=== PATIENT | male | born 1945 | race Caucasian/White ===

== ENCOUNTER 2018-08-02 07:29 | Day surgery (SDC) | payer MEDICARE, OTHER, SELFPAY ==
--- NOTE | 2018-08-02 | PATH_ITS ---
[facility] Accession Number: [id number] . 01 Material submitted: . SPLENIC FLEXURE POLYP . 02 Diagnosis: Biopsy, Colon Polyp, Splenic Flexure: Tubular adenoma. MRV/08/05/2018 . 02 Electronically signed: . Nile Griffin MD, Pathologist NPI- [id number] . 01 Gross description: . SPLENIC FLEXURE POLYP: Received in formalin is 1 fragment(s) of mckee, soft tissue measuring 0.5 x 0.3 x 0.2 cm submitted entirely in 1 cassette(s) /CKI /CKI . 02 Pathologist provided ICD-10: D12.2 . 02 CPT . 703867 Performed at: 01 [facility] [place] [address] [id number] MD Ernesto Drake MD Phone: [phone] Performed at: 02 [facility] [address] [place], [place] [id number] MD Mc Pavon MD Phone: [phone]
[2018-08-02 07:54] VITALS: BP 163/90; PULSE 77; RESP 16; TEMP 36.6; O2SAT 99; BMI 22.2
[2018-08-02] MEDS: MIDAZOLAM 5 MG/5 ML VIAL IV (08:46)
[2018-08-02] MEDS: fentaNYL 250 MCG/5 ML INJ IV (08:47)
[2018-08-02] MEDS: SODIUM CHLORIDE 0.9% 1,000 ML 200 ML IV (08:55)
[2018-08-02 09:04] VITALS: BP 114/77; PULSE 83; RESP 10; O2SAT 100
[2018-08-02 09:10] VITALS: BP 138/81; PULSE 87; RESP 12; O2SAT 99
[2018-08-02 09:11] VITALS: TEMP 36.6
[2018-08-02 09:14] VITALS: BP 127/86; PULSE 80; RESP 9; O2SAT 96
[2018-08-02 09:27] VITALS: BP 131/83; PULSE 76; RESP 12; TEMP 37.1; O2SAT 97
--- NOTE | 2018-08-02 09:47 | SUR.PHASEII ---
+ flatus per pt, abd soft.
--- NOTE | 2018-08-02 18:46 | OP_ITS ---
DATE OF SERVICE: 08/02/2018 PREOP DIAGNOSIS: Screening colonoscopy. POSTOP DIAGNOSIS: A 2- to 3-mm hyperplastic polyp removed at splenic flexure. OPERATIONS: 1. Total colonoscopy to the cecum. 2. Biopsy of splenic flexure. SURGEON: Zenon Hutton MD DESCRIPTION OF PROCEDURE: Patient was properly identified during surgical pause, given conscious sedation using Versed and fentanyl. The flexible fiberoptic colonoscope inserted transanally to the cecum. Patient had essentially normal colon mucosa throughout with the exception that he had a 2- to 3-mm sessile, what I believe to be a hyperplastic polyp, not a true adenoma, at the splenic flexure near 50 cm. This was removed with the cold forceps and sent for histology. Procedure was very well tolerated. No other polyps, tumors, or abnormalities were encountered. Nile Santiago - Barber/johan doc#: [id number]/job#: [id number] dd: 08/02/2018 09:08:00 dt: 08/02/2018 18:40:00 DICTATING MD/COPIES TO: Zenon Hutton MD COPIES MNE: ANNE-MARIE
--- NOTE | 2018-08-08 10:24 | HP_ITS ---
DATE OF SERVICE: 08/01/2018 PREOPERATIVE HISTORY AND PHYSICAL HISTORY OF PRESENT ILLNESS: Coming in tomorrow, August 02, 2018, for screening colonoscopy. Patient is 73. He is asymptomatic with no hematochezia, no melena. He's coming in for screening colonoscopy. He has had a previous colonoscopy and he is stated to have had some benign polyps removed. I don't have a date for that. PAST MEDICAL HISTORY: Patient is on beta-blockers. Taking metoprolol 25 mg extended release. He takes 2 twice a day, so he's taking 50 b.i.d. as an antihypertensive. He's also on hydrochlorothiazide 12.5. He takes one a day of that. He's also on thyroxine 100 mcg a day as a thyroid replacement hormone. ALLERGIES: HE HAS NO KNOWN MEDICAL ALLERGIES. REVIEW OF SYSTEMS: System review is negative for unusual chest pain or shortness of breath. GI is mentioned in HPI with history of benign polyps. : Does have some symptoms of BPH. NEUROLOGIC: Negative for strokes or TIAs. PHYSICAL EXAMINATION VITAL SIGNS: Blood pressure 134/76, heart rate 72 and regular. HEENT: Ears, nose, and throat are normal. NECK: No adenopathy. CHEST: Lungs are clear. HEART: Regular rhythm with no murmur. No gallop. ABDOMEN: Soft. No organomegaly or tenderness. No masses. RECTAL: Patient will have a rectal exam at the time of colonoscopy. It's deferred on this exam. DIAGNOSIS: Screening colonoscopy. Nile Santiago - /elizabeth/johan doc#: [id number]/job#: [id number] dd: 08/01/2018 11:15:00 dt: 08/01/2018 12:29:00 DICTATING MD/COPIES TO: Zenon Hutton MD COPIES MNE: ANNE-MARIE
== END 2018-08-02 09:42 | disposition home or self-care (01) ==
PROVIDERS: Surgery; PCP Family Medicine; Visit Provider Surgery
PROC: 0DJD8ZZ Inspection of Lower Intestinal Tract, Via Natural or Artificial Opening Endoscopic (ICD-10-PCS; CPT 45378; principal; 2018-08-02 08:45)
DX: Z12.11 Encounter for screening for malignant neoplasm of colon (principal); D12.2 Benign neoplasm of ascending colon
CPT/HCPCS: 45380; 88305; J2250; J3010

== ENCOUNTER 2019-12-05 13:45 | Outpatient (RCR) | payer OTHER, SELFPAY ==
--- NOTE | 2019-10-15 12:00 | PT.OPPOC ---
Physical, Occupational & Speech Therapy At 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) Visit Care Team Role Provider Type Devon Vega MD Primary Care Provider Physician Specialty: Family Practice Address: [address] [place] [address], [facility] [place], [address] Email: [email or web address] Attending Provider Specialty: Address: Phone: Fax: Email: Plan Of Care PT-OP-T Assessment and Plan Start: 10/14/19 13:59 Freq: Status: Active Protocol: Document 10/15/19 12:00 AW (Rec: 10/16/19 17:39 AW [id number]) Physical Therapy Assessment Rehab Potential Rehabilitation Potential Excellent Evaluation Complexity Number of Personal Factors/Comorbidities 1-2 Number of Body Systems Impaired 1-2 Clinical Presentation at Evaluation Stable Impairments Impairments Activity Tolerance,Balance, Functional Activities,Gait, Strength Other Concerns Barriers to Rehabilitation None identified Goals 4 Impairment impaired B LE strength Short Term Goal (STG) Pt will demonstrate 4+/5 strength in bilateral hips all planes. STG Duration 11/26/2019 Jail Goal (LTG) Pt will demonstrate 5/5 strength in bilateral hips all planes. LTG Duration 01/07/2020 3 Impairment Pt scores 23/30 on Functional Gait Assessment Jail Goal (LTG) Pt will score 27/30 or better to demonstrate improvement in dynamic balance and reduced risk of falls. LTG Duration 01/07/2020 2 Impairment Pt scores 59/80 on LEFS Short Term Goal (STG) Pt will score 66/80 or better to demonstrate improved function with daily activities . STG Duration 11/26/2019 [employer] Gun[employer] Observer Goal (LTG) Pt will score 72/80 or better to demonstrate improved function with daily activities . LTG Duration 01/07/2020 1 Impairment Pt has no appropriate HEP Short Term Goal (STG) Pt will be independent with HEP for support of therapy services provided in clinic. STG Duration 11/12/2019 [employer] Gun[employer] Observer Goal (LTG) Pt will be independent with maintenance HEP LTG Duration 01/07/2020 Assessment Summary Assessment Don presents to outpatient PT as a low complexity evaluation . He is functionally independent with all mobility using his R LE prosthesis but has decreased activity tolerance since acquisition of new socketless socket ~4 months ago. He reports no pain but does demonstrate B LE weakness affecting balance and gait efficiency. He will benefit from skilled physical therapy to address B LE strengthening and gait training for improved mechanics in gait. Physical Therapy Plan Frequency and Duration Frequency of Treatment 2x/Week Duration of Treatment 12 weeks Plan of Care Start Date 10/15/19 Plan of Care End Date 01/07/20 Therapeutic Interventions Therapeutic Interventions Balance Training,Gait Training ,Home Exercise Program,Joint Mobilizations,Manual Therapy, Neuromuscular Re-education, Orthotic/Prosthetic Management ,Patient/Caregiver Education, Self-Care/Home Management,Soft Tissue Mobilization,Taping, Therapeutic Activities, Therapeutic Exercises Next Visit Focus/Plan Next Note Type Treatment Note Next Visit Plan Assess response to prescribed exercise. Perform 6 minute walk test. Initiate LE strengthening and gait training. Plan of Care Dates Plan of Care Start Date 10/15/19 Plan of Care End Date 01/07/20 Electronically Signed by: Emily Allen PT 10/16/19 [id number] Please Sign and Return: I have reviewed this Plan of Care and certify that the skilled therapy services above are required to meet the patient?s needs. Physician Signature Date Printed Name and Credentials Clinical Instructor Signature Printed Name and Credentials
--- NOTE | 2019-10-15 12:00 | PT.OIE ---
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) Visit Care Team Role Provider Type Devon Vega MD Primary Care Provider Physician Specialty: Family Practice Address: [address] [place] [address], [facility], [place], [address] Email: [email or web address] Attending Provider Specialty: Address: Phone: Fax: Email: Physical Therapy Initial Evaluation PT-OP-A Visit Information Start: 10/14/19 13:59 Freq: Status: Active Protocol: Document 10/15/19 12:00 AW (Rec: 10/16/19 17:39 AW [id number]) Out-Patient Physical Therapy Visit Information Visit Information Visit Type Initial Evaluation Visit Start Time 11:15 Visit Stop Time 12:00 Total Visit Minutes 45 Visit Number 1 Number of ASBESTOS REMOVER Visits 0 Evaluation Information Evaluation Date 10/15/19 PT-OP-B Current Condition Start: 10/14/19 13:59 Freq: Status: Active Protocol: Document 10/15/19 12:00 AW (Rec: 10/16/19 17:39 AW [id number]) Current Condition History of Current Condition Onset Date 4 months Current Complaints right LE weakness, decreased activity tolerance History of Current Condition Efe is a of the [place] conflict who sustained R LE injury during service, rehabilitated for most of a year in an attempt to salvage the limb, and then 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 He has used the same prosthesis for many years with a rigid socket, but he began to experience ischial irritation and switched to a [employer] socketless socket under the care of Flory Linares at [facility] ~4 months ago . Since that time, he has enjoyed increased comfort with his prosthesis and is able to wear it longer during the day but notices that he becomes fatigued more easily. He seeks physical therapy for strengthening and gait training in order to maximize use of his prosthesis with new socket. Prior Treatments and Tests Under the care of ADELINA Godfrey at [facility]. Future Testing and Treatments Planned none identified Treatment Goals Patient/Caregiver Goals Efe would like to get more use out of his new prosthesis with new socket and be able to walk longer distances with less fatigue. Prior Functional Status Baseline Function- ADL's Independent Baseline Function- Mobility Independent Baseline Function- Gait independent with prosthesis Baseline Function- Work/School retired Baseline Function- Recreation/Hobbies Pt likes to spend time working in the yard Current Functional Impairments (Reported) Functional Limitations- Mobility/Gait Pt reports he is more fatigued with ambulation than he was with his previous socket Functional Limitations- Recreation/ Decreased confidence on uneven Hobbies surfaces PT-OP-C Subjective Start: 10/14/19 13:59 Freq: Status: Active Protocol: Document 10/15/19 12:00 AW (Rec: 10/16/19 17:39 AW [id number]) Patient Questionnaires Lower Extremity Functional Scale LEFS Score 59/80 LEFS Impairment 20 to 39% Impaired (Score 48- 62) OP-PT Pain Assessment Pain Assessment Grid Paper Pain Assessment Grid Completed Yes Comments Pain Comments No pain reported. PT-OP-E Functional Tests Start: 10/14/19 13:59 Freq: Status: Active Protocol: Document 10/15/19 12:00 AW (Rec: 10/16/19 17:39 AW [id number]) Functional Tests Functional Gait Assessment Score 23/30 PT-OP-F Manual Assessment Start: 10/14/19 13:59 Freq: Status: Active Protocol: Document 10/15/19 12:00 AW (Rec: 10/16/19 17:39 AW [id number]) Manual Assessments Other Manual Assessments Other Manual Assessments Global atrophy of right hip musculature relative to left. PT-OP-G Mobility & Gait Start: 10/14/19 13:59 Freq: Status: Active Protocol: Document 10/15/19 12:00 AW (Rec: 10/16/19 17:39 AW [id number]) OP Mobility Evaluation Functional Movements Other Functional Movements Independent with all functional mobility OP Gait Assessment Gait Gait Assistance Required: Independent Distance (Feet) 200 Assistive Devices Orthotic/Prosthetic Devices or Brace: Yes Gait Deviations General Gait Pattern Lateral Trunk Lean,Wide Based Gait Factors Limiting Gait Function Factors Limiting Gait Function Decreased Activity Tolerance, Decreased Strength Comments Gait Comments Pt walks with increased hip flexion on the R LE to clear his foot. Contralateral hip drop during R LE stance. Mild circumduction and overuse of adductors during R LE swing phase. Right lateral trunk lean during R LE stance. Stair Climbing Evaluation Evaluation Level of Assist On Stairs Independent Devices Stair Climbing Assistive Devices Left Railing,Right Railing Technique/Endurance Stair Climbing Direction Ascend and Descend Stair Climbing Technique Step Over Step,Step to Step Number of Steps Climbed 4 Stair Climbing Set # Repetitions (reps) 3 Comments Stair Climbing Comments Pt ascended using B rails and step over step pattern. He is able to descend with B rails and step over step if he is careful to position his right forefoot off the step, but he tends to use a step-to pattern descending for increased confidence. PT-OP-K Range of Motion Start: 10/14/19 13:59 Freq: Status: Active Protocol: Document 10/15/19 12:00 AW (Rec: 10/16/19 17:39 AW [id number]) Hip Goniometric Range of Motion Hip ROM Limitations Comments B hip AROM WNL and normal end feels with PROM PT-OP-M Strength Start: 10/14/19 13:59 Freq: Status: Active Protocol: Document 10/15/19 12:00 AW (Rec: 10/16/19 17:39 AW [id number]) Hip Strength Hip Manual Muscle Testing Right Flexion (L2) 4 Good Extension (S1) 4- Good- Abduction 4- Good- Adduction 4 Good Left Flexion (L2) 4+ Good+ Extension (S1) 4- Good- Abduction 4- Good- Adduction 4 Good External Rotation 4 Good Internal Rotation 4 Good Knee Strength Knee Manual Muscle Testing Left Flexion (S2) 5 Normal Extension (L3) 5 Normal Ankle/Foot Strength Ankle and Foot Manual Muscle Testing Left Dorsiflexion (L4) 5 Normal Plantarflexion (S1) 5 Normal PT-OP-Q Treatments Start: 10/14/19 13:59 Freq: Status: Active Protocol: Document 10/15/19 12:00 AW (Rec: 10/16/19 17:39 AW [id number]) Therapeutic Exercises Sidelying Exercises sidelying hip abduction Sidelying Exercise Name sidelying hip abduction Side right Reps/Minutes 2 x 10 reps Comments HEP PT-OP-T Assessment and Plan Start: 10/14/19 13:59 Freq: Status: Active Protocol: Document 10/15/19 12:00 AW (Rec: 10/16/19 17:39 AW [id number]) Physical Therapy Assessment Rehab Potential Rehabilitation Potential Excellent Evaluation Complexity Number of Personal Factors/Comorbidities 1-2 Number of Body Systems Impaired 1-2 Clinical Presentation at Evaluation Stable Impairments Impairments Activity Tolerance,Balance, Functional Activities,Gait, Strength Other Concerns Barriers to Rehabilitation None identified Goals 4 Impairment impaired B LE strength Short Term Goal (STG) Pt will demonstrate 4+/5 strength in bilateral hips all planes. STG Duration 11/26/2019 Custodial Goal (LTG) Pt will demonstrate 5/5 strength in bilateral hips all planes. LTG Duration 01/07/2020 3 Impairment Pt scores 23/30 on Functional Gait Assessment Advertising Inserter Goal (LTG) Pt will score 27/30 or better to demonstrate improvement in dynamic balance and reduced risk of falls. LTG Duration 01/07/2020 2 Impairment Pt scores 59/80 on LEFS Short Term Goal (STG) Pt will score 66/80 or better to demonstrate improved function with daily activities . STG Duration 11/26/2019 Custodial Goal (LTG) Pt will score 72/80 or better to demonstrate improved function with daily activities . LTG Duration 01/07/2020 1 Impairment Pt has no appropriate HEP Short Term Goal (STG) Pt will be independent with HEP for support of therapy services provided in clinic. STG Duration 11/12/2019 Advertising Inserter Goal (LTG) Pt will be independent with maintenance HEP LTG Duration 01/07/2020 Assessment Summary Assessment Efe presents to outpatient PT as a low complexity evaluation . He is functionally independent with all mobility using his R LE prosthesis but has decreased activity tolerance since acquisition of new socketless socket ~4 months ago. He reports no pain but does demonstrate B LE weakness affecting balance and gait efficiency. He will benefit from skilled physical therapy to address B LE strengthening and gait training for improved mechanics in gait. Physical Therapy Plan Frequency and Duration Frequency of Treatment 2x/Week Duration of Treatment 12 weeks Plan of Care Start Date 10/15/19 Plan of Care End Date 01/07/20 Therapeutic Interventions Therapeutic Interventions Balance Training,Gait Training ,Home Exercise Program,Joint Mobilizations,Manual Therapy, Neuromuscular Re-education, Orthotic/Prosthetic Management ,Patient/Caregiver Education, Self-Care/Home Management,Soft Tissue Mobilization,Taping, Therapeutic Activities, Therapeutic Exercises Next Visit Focus/Plan Next Note Type Treatment Note Next Visit Plan Assess response to prescribed exercise. Perform 6 minute walk test. Initiate LE strengthening and gait training.
--- NOTE | 2019-10-17 13:08 | PT.OTN ---
Current Diagnoses Muscle weakness (generalized) (10/17/19) Unspecified abnormalities of gait and mobility (10/17/19) Acquired absence of right leg above knee (10/17/19) Physical Therapy Treatment Note PT-OP-A Visit Information Start: 10/14/19 13:59 Freq: Status: Active Protocol: Document 10/17/19 12:19 SP (Rec: 10/17/19 14:29 SP [id number]) Out-Patient Physical Therapy Visit Information Visit Information Visit Type Treatment Note Visit Start Time 12:19 Visit Stop Time 13:00 Total Visit Minutes 41 Visit Number 2 Number of WASHTUB WORKER Visits 1 PT-OP-B Current Condition Start: 10/14/19 13:59 Freq: Status: Active Protocol: Document 10/15/19 12:00 AW (Rec: 10/16/19 17:39 AW [id number]) Current Condition History of Current Condition Onset Date 4 months Current Complaints right LE weakness, decreased activity tolerance History of Current Condition Efe is a of the [place] conflict who sustained R LE injury during service, rehabilitated for most of a year in an attempt to salvage the limb, and then 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 He has used the same prosthesis for many years with a rigid socket, but he began to experience ischial irritation and switched to a [employer] socketless socket under the care of Flory Linares at [facility] ~4 months ago . Since that time, he has enjoyed increased comfort with his prosthesis and is able to wear it longer during the day but notices that he becomes fatigued more easily. He seeks physical therapy for strengthening and gait training in order to maximize use of his prosthesis with new socket. Prior Treatments and Tests Under the care of ADELINA Godfrey at [facility]. Future Testing and Treatments Planned none identified Treatment Goals Patient/Caregiver Goals Efe would like to get more use out of his new prosthesis with new socket and be able to walk longer distances with less fatigue. Prior Functional Status Baseline Function- ADL's Independent Baseline Function- Mobility Independent Baseline Function- Gait independent with prosthesis Baseline Function- Work/School retired Baseline Function- Recreation/Hobbies Pt likes to spend time working in the yard Current Functional Impairments (Reported) Functional Limitations- Mobility/Gait Pt reports he is more fatigued with ambulation than he was with his previous socket Functional Limitations- Recreation/ Decreased confidence on uneven Hobbies surfaces PT-OP-C Subjective Start: 10/14/19 13:59 Freq: Status: Active Protocol: Document 10/17/19 12:19 SP (Rec: 10/17/19 14:29 SP [id number]) OP-PT Subjective Patient Comments Patient Comments Pt reported compliant with HEP hip abd instructed last tx, felt fine. PT-OP-E Functional Tests Start: 10/14/19 13:59 Freq: Status: Active Protocol: Document 10/17/19 14:30 SP (Rec: 10/17/19 14:32 SP [id number]) Functional Tests 6 Minute Walk Test Distance 1038 Device Used prosthetic Comments hip flexor, adductor R tiring, noted slight circumduction, slower pace end PT-OP-F Manual Assessment Start: 10/14/19 13:59 Freq: Status: Active Protocol: Document 10/15/19 12:00 AW (Rec: 10/16/19 17:39 AW [id number]) Manual Assessments Other Manual Assessments Other Manual Assessments Global atrophy of right hip musculature relative to left. PT-OP-G Mobility & Gait Start: 10/14/19 13:59 Freq: Status: Active Protocol: Document 10/15/19 12:00 AW (Rec: 10/16/19 17:39 AW [id number]) OP Mobility Evaluation Functional Movements Other Functional Movements Independent with all functional mobility OP Gait Assessment Gait Gait Assistance Required: Independent Distance (Feet) 200 Assistive Devices Orthotic/Prosthetic Devices or Brace: Yes Gait Deviations General Gait Pattern Lateral Trunk Lean,Wide Based Gait Factors Limiting Gait Function Factors Limiting Gait Function Decreased Activity Tolerance, Decreased Strength Comments Gait Comments Pt walks with increased hip flexion on the R LE to clear his foot. Contralateral hip drop during R LE stance. Mild circumduction and overuse of adductors during R LE swing phase. Right lateral trunk lean during R LE stance. Stair Climbing Evaluation Evaluation Level of Assist On Stairs Independent Devices Stair Climbing Assistive Devices Left Railing,Right Railing Technique/Endurance Stair Climbing Direction Ascend and Descend Stair Climbing Technique Step Over Step,Step to Step Number of Steps Climbed 4 Stair Climbing Set # Repetitions (reps) 3 Comments Stair Climbing Comments Pt ascended using B rails and step over step pattern. He is able to descend with B rails and step over step if he is careful to position his right forefoot off the step, but he tends to use a step-to pattern descending for increased confidence. PT-OP-K Range of Motion Start: 10/14/19 13:59 Freq: Status: Active Protocol: Document 10/15/19 12:00 AW (Rec: 10/16/19 17:39 AW [id number]) Hip Goniometric Range of Motion Hip ROM Limitations Comments B hip AROM WNL and normal end feels with PROM PT-OP-M Strength Start: 10/14/19 13:59 Freq: Status: Active Protocol: Document 10/15/19 12:00 AW (Rec: 10/16/19 17:39 AW [id number]) Hip Strength Hip Manual Muscle Testing Right Flexion (L2) 4 Good Extension (S1) 4- Good- Abduction 4- Good- Adduction 4 Good Left Flexion (L2) 4+ Good+ Extension (S1) 4- Good- Abduction 4- Good- Adduction 4 Good External Rotation 4 Good Internal Rotation 4 Good Knee Strength Knee Manual Muscle Testing Left Flexion (S2) 5 Normal Extension (L3) 5 Normal Ankle/Foot Strength Ankle and Foot Manual Muscle Testing Left Dorsiflexion (L4) 5 Normal Plantarflexion (S1) 5 Normal PT-OP-Q Treatments Start: 10/14/19 13:59 Freq: Status: Active Protocol: Document 10/17/19 12:19 SP (Rec: 10/17/19 14:29 SP [id number]) Therapeutic Exercises Supine Exercises adductor stretch Supine Exercise Name prosthetic donned Side right Reps/Minutes 30 x3 bridge Supine Exercise Name prosthetic donned (HEP) Reps/Minutes 2x10 Comments cued PPT, slow pacing control up/down and knee parallel Sidelying Exercises sidelying hip abduction Side right Equipment Used prosthetic donned Reps/Minutes 2x7 Comments HEP Sitting Exercises glut stretch Sitting Exercise Name fiugure 4 lean forward Reps/Minutes 30 x2 Standing Exercises sit to stands Resistance Tb #1 loop Reps/Minutes 2x7 Comments parallel feet, knees with and behind toes, hip hinge arms across chest, ER PT-OP-T Assessment and Plan Start: 10/14/19 13:59 Freq: Status: Active Protocol: Document 10/17/19 12:19 SP (Rec: 10/17/19 14:29 SP [id number]) Physical Therapy Assessment Goals 4 Impairment impaired B LE strength Short Term Goal (STG) Pt will demonstrate 4+/5 strength in bilateral hips all planes. STG Duration 11/26/2019 Assisted Goal (LTG) Pt will demonstrate 5/5 strength in bilateral hips all planes. LTG Duration 01/07/2020 3 Impairment Pt scores 23/30 on Functional Gait Assessment Assisted Goal (LTG) Pt will score 27/30 or better to demonstrate improvement in dynamic balance and reduced risk of falls. LTG Duration 01/07/2020 2 Impairment Pt scores 59/80 on LEFS Short Term Goal (STG) Pt will score 66/80 or better to demonstrate improved function with daily activities . STG Duration 11/26/2019 Rock Splitter Goal (LTG) Pt will score 72/80 or better to demonstrate improved function with daily activities . LTG Duration 01/07/2020 1 Impairment Pt has no appropriate HEP Short Term Goal (STG) Pt will be independent with HEP for support of therapy services provided in clinic. STG Duration 11/12/2019 Rock Splitter Goal (LTG) Pt will be independent with maintenance HEP LTG Duration 01/07/2020 Assessment Summary Assessment Pt tolerated tx today, focused on HEP review and added more exercises (prosthetic donned) and stretches: hip abd with prothetic today secondary to reported pretty easy without, bridging, sit to stands with TB loop around knees and cuing for even wt distribution BLE and glut/adductor stretches to decrease soreness abductors ( with ex), hip flexors post completed 6MWT 1038 ft (no AD, prosthetic donned). Positive response to tx, very helpful, simple but effective to do at home. No pain reported, muscle work out soreness more abd's than add's. Physical Therapy Plan Frequency and Duration Frequency of Treatment 2x/Week Duration of Treatment 12 weeks Plan of Care Start Date 10/15/19 Plan of Care End Date 01/07/20 Therapeutic Interventions Therapeutic Interventions Balance Training,Gait Training ,Home Exercise Program,Joint Mobilizations,Manual Therapy, Neuromuscular Re-education, Orthotic/Prosthetic Management ,Patient/Caregiver Education, Self-Care/Home Management,Soft Tissue Mobilization,Taping, Therapeutic Activities, Therapeutic Exercises Next Visit Focus/Plan Next Note Type Treatment Note Next Visit Plan Assess response to HEP exercise: bridge, hip abd with prosthetic donned, sit to stand, glut/adductor stretches Continue per PT POC: Initiate LE strengthening and gait training.
--- NOTE | 2019-10-24 13:50 | PT.OTN ---
Current Diagnoses Muscle weakness (generalized) (10/24/19) Unspecified abnormalities of gait and mobility (10/24/19) Acquired absence of right leg above knee (10/24/19) Physical Therapy Treatment Note PT-OP-A Visit Information Start: 10/14/19 13:59 Freq: Status: Active Protocol: Document 10/24/19 13:10 SP (Rec: 10/24/19 14:04 SP [id number]) Out-Patient Physical Therapy Visit Information Visit Information Visit Type Treatment Note Visit Start Time 13:10 Visit Stop Time 13:50 Total Visit Minutes 40 Visit Number 3 Number of MANAGER SECURITY AND SAFETY Visits 2 PT-OP-B Current Condition Start: 10/14/19 13:59 Freq: Status: Active Protocol: Document 10/15/19 12:00 AW (Rec: 10/16/19 17:39 AW [id number]) Current Condition History of Current Condition Onset Date 4 months Current Complaints right LE weakness, decreased activity tolerance History of Current Condition Efe is a of the [place] conflict who sustained R LE injury during service, rehabilitated for most of a year in an attempt to salvage the limb, and then 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 He has used the same prosthesis for many years with a rigid socket, but he began to experience ischial irritation and switched to a [employer] socketless socket [facility] . Since that time, he has enjoyed increased comfort with his prosthesis and is able to wear it longer during the day but notices that he becomes fatigued more easily. He seeks physical therapy for strengthening and gait training in order to maximize use of his prosthesis with new socket. Prior Treatments and Tests Under the care of ADELINA Godfrey at [facility]. Future Testing and Treatments Planned none identified Treatment Goals Patient/Caregiver Goals Efe would like to get more use out of his new prosthesis with new socket and be able to walk longer distances with less fatigue. Prior Functional Status Baseline Function- ADL's Independent Baseline Function- Mobility Independent Baseline Function- Gait independent with prosthesis Baseline Function- Work/School retired Baseline Function- Recreation/Hobbies Pt likes to spend time working in the yard Current Functional Impairments (Reported) Functional Limitations- Mobility/Gait Pt reports he is more fatigued with ambulation than he was with his previous socket Functional Limitations- Recreation/ Decreased confidence on uneven Hobbies surfaces PT-OP-C Subjective Start: 10/14/19 13:59 Freq: Status: Active Protocol: Document 10/24/19 13:10 SP (Rec: 10/24/19 14:04 SP [id number]) OP-PT Subjective Patient Comments Patient Comments Pt reported compliant with HEP instructed and no adverse reaction to added ex, have found good muscles haven't used in a while. PT-OP-E Functional Tests Start: 10/14/19 13:59 Freq: Status: Active Protocol: Document 10/17/19 14:30 SP (Rec: 10/17/19 14:32 SP [id number]) Functional Tests 6 Minute Walk Test Distance 1038 Device Used prosthetic Comments hip flexor, adductor R tiring, noted slight circumduction, slower pace end PT-OP-F Manual Assessment Start: 10/14/19 13:59 Freq: Status: Active Protocol: Document 10/15/19 12:00 AW (Rec: 10/16/19 17:39 AW [id number]) Manual Assessments Other Manual Assessments Other Manual Assessments Global atrophy of right hip musculature relative to left. PT-OP-G Mobility & Gait Start: 10/14/19 13:59 Freq: Status: Active Protocol: Document 10/15/19 12:00 AW (Rec: 10/16/19 17:39 AW [id number]) OP Mobility Evaluation Functional Movements Other Functional Movements Independent with all functional mobility OP Gait Assessment Gait Gait Assistance Required: Independent Distance (Feet) 200 Assistive Devices Orthotic/Prosthetic Devices or Brace: Yes Gait Deviations General Gait Pattern Lateral Trunk Lean,Wide Based Gait Factors Limiting Gait Function Factors Limiting Gait Function Decreased Activity Tolerance, Decreased Strength Comments Gait Comments Pt walks with increased hip flexion on the R LE to clear his foot. Contralateral hip drop during R LE stance. Mild circumduction and overuse of adductors during R LE swing phase. Right lateral trunk lean during R LE stance. Stair Climbing Evaluation Evaluation Level of Assist On Stairs Independent Devices Stair Climbing Assistive Devices Left Railing,Right Railing Technique/Endurance Stair Climbing Direction Ascend and Descend Stair Climbing Technique Step Over Step,Step to Step Number of Steps Climbed 4 Stair Climbing Set # Repetitions (reps) 3 Comments Stair Climbing Comments Pt ascended using B rails and step over step pattern. He is able to descend with B rails and step over step if he is careful to position his right forefoot off the step, but he tends to use a step-to pattern descending for increased confidence. PT-OP-K Range of Motion Start: 10/14/19 13:59 Freq: Status: Active Protocol: Document 10/15/19 12:00 AW (Rec: 10/16/19 17:39 AW [id number]) Hip Goniometric Range of Motion Hip ROM Limitations Comments B hip AROM WNL and normal end feels with PROM PT-OP-M Strength Start: 10/14/19 13:59 Freq: Status: Active Protocol: Document 10/15/19 12:00 AW (Rec: 10/16/19 17:39 AW [id number]) Hip Strength Hip Manual Muscle Testing Right Flexion (L2) 4 Good Extension (S1) 4- Good- Abduction 4- Good- Adduction 4 Good Left Flexion (L2) 4+ Good+ Extension (S1) 4- Good- Abduction 4- Good- Adduction 4 Good External Rotation 4 Good Internal Rotation 4 Good Knee Strength Knee Manual Muscle Testing Left Flexion (S2) 5 Normal Extension (L3) 5 Normal Ankle/Foot Strength Ankle and Foot Manual Muscle Testing Left Dorsiflexion (L4) 5 Normal Plantarflexion (S1) 5 Normal PT-OP-Q Treatments Start: 10/14/19 13:59 Freq: Status: Active Protocol: Document 10/24/19 13:10 SP (Rec: 10/24/19 14:04 SP [id number]) Therapeutic Exercises Supine Exercises Christiano stretch Supine Exercise Name off side of table Side right Equipment Used strap Reps/Minutes 3 x 30 Comments cued awareness not allow LS arch adductor stretch Supine Exercise Name prosthetic donned Side right Reps/Minutes 30 x3 bridge Supine Exercise Name prosthetic donned (HEP) Reps/Minutes 2x10 Comments cued PPT, slow pacing control up/down and knee parallel Sidelying Exercises sidelying hip abduction Side right Equipment Used prosthetic donned Reps/Minutes 2x7 Comments HEP Standing Exercises band walk Standing Exercise Name forward/ lateral Equipment Used #1 Reps/Minutes 20 ft x2 laps each direction Comments add HEP, cued foot clearance with level pelvis glut med facilitation sit to stands Resistance Tb #1 loop Reps/Minutes 2x7 Comments parallel feet, knees with and behind toes, hip hinge arms across chest, ER PT-OP-T Assessment and Plan Start: 10/14/19 13:59 Freq: Status: Active Protocol: Document 10/24/19 13:10 SP (Rec: 10/24/19 14:04 SP [id number]) Physical Therapy Assessment Goals 4 Impairment impaired B LE strength Short Term Goal (STG) Pt will demonstrate 4+/5 strength in bilateral hips all planes. STG Duration 11/26/2019 Fdc Goal (LTG) Pt will demonstrate 5/5 strength in bilateral hips all planes. LTG Duration 01/07/2020 3 Impairment Pt scores 23/30 on Functional Gait Assessment Finisher Cold Rolling Goal (LTG) Pt will score 27/30 or better to demonstrate improvement in dynamic balance and reduced risk of falls. LTG Duration 01/07/2020 2 Impairment Pt scores 59/80 on LEFS Short Term Goal (STG) Pt will score 66/80 or better to demonstrate improved function with daily activities . STG Duration 11/26/2019 Fdc Goal (LTG) Pt will score 72/80 or better to demonstrate improved function with daily activities . LTG Duration 01/07/2020 1 Impairment Pt has no appropriate HEP Short Term Goal (STG) Pt will be independent with HEP for support of therapy services provided in clinic. STG Duration 11/12/2019 Fdc Goal (LTG) Pt will be independent with maintenance HEP LTG Duration 01/07/2020 Assessment Summary Assessment Pt tolerated tx well, these exercises are great. Pt good recall HEP, cued HEP trunk/LE alignment during hip abd AROM for post hip glut max activation to decrease TFL recruitment I can feel that, better not using anterior hip now, little harder now. Added christiano stretch prox quad and TFL and lateral/ forward band walk with cuing for decrease hip elevation during RLE movement awareness with foot clearance, improvement as reps progressed. Improvement in gait when leaving. Physical Therapy Plan Frequency and Duration Frequency of Treatment 2x/Week Duration of Treatment 12 weeks Plan of Care Start Date 10/15/19 Plan of Care End Date 01/07/20 Therapeutic Interventions Therapeutic Interventions Balance Training,Gait Training ,Home Exercise Program,Joint Mobilizations,Manual Therapy, Neuromuscular Re-education, Orthotic/Prosthetic Management ,Patient/Caregiver Education, Self-Care/Home Management,Soft Tissue Mobilization,Taping, Therapeutic Activities, Therapeutic Exercises Next Visit Focus/Plan Next Note Type Treatment Note Next Visit Plan Assess response to last tx added band walk and HEP review supine. HEp review and progress standing HEP for gait . Continue per PT POC: Initiate LE strengthening and gait training.
--- NOTE | 2019-10-29 15:42 | PT.OTN ---
Current Diagnoses Muscle weakness (generalized) (10/29/19) Unspecified abnormalities of gait and mobility (10/29/19) Acquired absence of right leg above knee (10/29/19) Physical Therapy Treatment Note PT-OP-A Visit Information Start: 10/14/19 13:59 Freq: Status: Active Protocol: Document 10/29/19 15:25 AW (Rec: 10/29/19 15:42 AW [id number]) Out-Patient Physical Therapy Visit Information Visit Information Visit Type Treatment Note Visit Start Time 13:00 Visit Stop Time 13:45 Total Visit Minutes 45 Visit Number 4 Number of WATER PUMP OPERATOR Visits 0 PT-OP-B Current Condition Start: 10/14/19 13:59 Freq: Status: Active Protocol: Document 10/15/19 12:00 AW (Rec: 10/16/19 17:39 AW [id number]) Current Condition History of Current Condition Onset Date 4 months Current Complaints right LE weakness, decreased activity tolerance History of Current Condition Efe is a of the [place] conflict who sustained R LE injury during service, rehabilitated for most of a year in an attempt to salvage the limb, and then 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 He has used the same prosthesis for many years with a rigid socket, but he began to experience ischial irritation and switched to a [employer] socketless socket under the care of Flory Linares at [facility] ~4 months ago . Since that time, he has enjoyed increased comfort with his prosthesis and is able to wear it longer during the day but notices that he becomes fatigued more easily. He seeks physical therapy for strengthening and gait training in order to maximize use of his prosthesis with new socket. Prior Treatments and Tests Under the care of ADELINA Godfrey at [facility]. Future Testing and Treatments Planned none identified Treatment Goals Patient/Caregiver Goals Efe would like to get more use out of his new prosthesis with new socket and be able to walk longer distances with less fatigue. Prior Functional Status Baseline Function- ADL's Independent Baseline Function- Mobility Independent Baseline Function- Gait independent with prosthesis Baseline Function- Work/School retired Baseline Function- Recreation/Hobbies Pt likes to spend time working in the yard Current Functional Impairments (Reported) Functional Limitations- Mobility/Gait Pt reports he is more fatigued with ambulation than he was with his previous socket Functional Limitations- Recreation/ Decreased confidence on uneven Hobbies surfaces PT-OP-C Subjective Start: 10/14/19 13:59 Freq: Status: Active Protocol: Document 10/29/19 15:25 AW (Rec: 10/29/19 15:42 AW [id number]) OP-PT Subjective Patient Comments Patient Comments Pt reports right adductor soreness after 6 minute walk last session. PT-OP-E Functional Tests Start: 10/14/19 13:59 Freq: Status: Active Protocol: Document 10/17/19 14:30 SP (Rec: 10/17/19 14:32 SP [id number]) Functional Tests 6 Minute Walk Test Distance 1038 Device Used prosthetic Comments hip flexor, adductor R tiring, noted slight circumduction, slower pace end PT-OP-F Manual Assessment Start: 10/14/19 13:59 Freq: Status: Active Protocol: Document 10/15/19 12:00 AW (Rec: 10/16/19 17:39 AW [id number]) Manual Assessments Other Manual Assessments Other Manual Assessments Global atrophy of right hip musculature relative to left. PT-OP-G Mobility & Gait Start: 10/14/19 13:59 Freq: Status: Active Protocol: Document 10/15/19 12:00 AW (Rec: 10/16/19 17:39 AW [id number]) OP Mobility Evaluation Functional Movements Other Functional Movements Independent with all functional mobility OP Gait Assessment Gait Gait Assistance Required: Independent Distance (Feet) 200 Assistive Devices Orthotic/Prosthetic Devices or Brace: Yes Gait Deviations General Gait Pattern Lateral Trunk Lean,Wide Based Gait Factors Limiting Gait Function Factors Limiting Gait Function Decreased Activity Tolerance, Decreased Strength Comments Gait Comments Pt walks with increased hip flexion on the R LE to clear his foot. Contralateral hip drop during R LE stance. Mild circumduction and overuse of adductors during R LE swing phase. Right lateral trunk lean during R LE stance. Stair Climbing Evaluation Evaluation Level of Assist On Stairs Independent Devices Stair Climbing Assistive Devices Left Railing,Right Railing Technique/Endurance Stair Climbing Direction Ascend and Descend Stair Climbing Technique Step Over Step,Step to Step Number of Steps Climbed 4 Stair Climbing Set # Repetitions (reps) 3 Comments Stair Climbing Comments Pt ascended using B rails and step over step pattern. He is able to descend with B rails and step over step if he is careful to position his right forefoot off the step, but he tends to use a step-to pattern descending for increased confidence. PT-OP-K Range of Motion Start: 10/14/19 13:59 Freq: Status: Active Protocol: Document 10/15/19 12:00 AW (Rec: 10/16/19 17:39 AW [id number]) Hip Goniometric Range of Motion Hip ROM Limitations Comments B hip AROM WNL and normal end feels with PROM PT-OP-M Strength Start: 10/14/19 13:59 Freq: Status: Active Protocol: Document 10/15/19 12:00 AW (Rec: 10/16/19 17:39 AW [id number]) Hip Strength Hip Manual Muscle Testing Right Flexion (L2) 4 Good Extension (S1) 4- Good- Abduction 4- Good- Adduction 4 Good Left Flexion (L2) 4+ Good+ Extension (S1) 4- Good- Abduction 4- Good- Adduction 4 Good External Rotation 4 Good Internal Rotation 4 Good Knee Strength Knee Manual Muscle Testing Left Flexion (S2) 5 Normal Extension (L3) 5 Normal Ankle/Foot Strength Ankle and Foot Manual Muscle Testing Left Dorsiflexion (L4) 5 Normal Plantarflexion (S1) 5 Normal PT-OP-Q Treatments Start: 10/14/19 13:59 Freq: Status: Active Protocol: Document 10/29/19 15:25 AW (Rec: 10/29/19 15:42 AW [id number]) Therapeutic Exercises Supine Exercises Christiano stretch Supine Exercise Name off side of table Side right Equipment Used strap; with prosthesis Reps/Minutes 2 min Comments cued awareness not allow LS arch adductor stretch Supine Exercise Name prosthetic donned Side right Equipment Used strap; with prosthesis Reps/Minutes 1 min x 2 bridge Supine Exercise Name prosthetic donned (HEP) Reps/Minutes 2x10 Comments cued level pelvis Sidelying Exercises clamshell Sidelying Exercise Name clamshell Side right Resistance level 1 TB Reps/Minutes 2x10 reps Comments added to HEP sidelying hip abduction Sidelying Exercise Name sidelying hip abduction Side right Resistance level 1 TB Equipment Used prosthetic donned Reps/Minutes 2x10 reps Comments HEP Standing Exercises band walk Standing Exercise Name forward/ lateral Equipment Used level 1 TB Reps/Minutes 20 ft x2 laps each direction Comments cued foot clearance with level pelvis glut med facilitation sit to stands Standing Exercise Name sit to stand Resistance level 1 TB Reps/Minutes 3x5 reps Comments parallel feet, knees with and behind toes, exaggerated forward lean PT-OP-T Assessment and Plan Start: 10/14/19 13:59 Freq: Status: Active Protocol: Document 10/29/19 15:25 AW (Rec: 10/29/19 15:42 AW [id number]) Physical Therapy Assessment Goals 4 Impairment impaired B LE strength Short Term Goal (STG) Pt will demonstrate 4+/5 strength in bilateral hips all planes. STG Duration 11/26/2019 Oyster Cultivator Goal (LTG) Pt will demonstrate 5/5 strength in bilateral hips all planes. LTG Duration 01/07/2020 3 Impairment Pt scores 23/30 on Functional Gait Assessment [facility] Goal (LTG) Pt will score 27/30 or better to demonstrate improvement in dynamic balance and reduced risk of falls. LTG Duration 01/07/2020 2 Impairment Pt scores 59/80 on LEFS Short Term Goal (STG) Pt will score 66/80 or better to demonstrate improved function with daily activities . STG Duration 11/26/2019 Oyster Cultivator Goal (LTG) Pt will score 72/80 or better to demonstrate improved function with daily activities . LTG Duration 01/07/2020 1 Impairment Pt has no appropriate HEP Short Term Goal (STG) Pt will be independent with HEP for support of therapy services provided in clinic. STG Duration 11/12/2019 Oyster Cultivator Goal (LTG) Pt will be independent with maintenance HEP LTG Duration 01/07/2020 Assessment Summary Assessment Adductor soreness likely attributable to excessive adductor recruitment during circumduction. Pt appreciated adductor stretch. He continues to tolerate ther ex well and is progressing with LE strengthening but would benefit from a consultation with his compliance coordinator for adjustment. Physical Therapy Plan Frequency and Duration Frequency of Treatment 2x/Week Duration of Treatment 12 weeks Plan of Care Start Date 10/15/19 Plan of Care End Date 01/07/20 Therapeutic Interventions Therapeutic Interventions Balance Training,Gait Training ,Home Exercise Program,Joint Mobilizations,Manual Therapy, Neuromuscular Re-education, Orthotic/Prosthetic Management ,Patient/Caregiver Education, Self-Care/Home Management,Soft Tissue Mobilization,Taping, Therapeutic Activities, Therapeutic Exercises Next Visit Focus/Plan Next Note Type Treatment Note Next Visit Plan HEP review and progress standing HEP for gait.
--- NOTE | 2019-10-31 13:45 | PT.OTN ---
Current Diagnoses Muscle weakness (generalized) (10/31/19) Unspecified abnormalities of gait and mobility (10/31/19) Acquired absence of right leg above knee (10/31/19) Physical Therapy Treatment Note PT-OP-A Visit Information Start: 10/14/19 13:59 Freq: Status: Active Protocol: Document 10/31/19 13:00 SP (Rec: 10/31/19 16:42 SP [id number]) Out-Patient Physical Therapy Visit Information Visit Information Visit Type Treatment Note Visit Start Time 13:00 Visit Stop Time 13:45 Total Visit Minutes 45 Visit Number 5 Number of JEWELLERY DESIGNER Visits 1 PT-OP-B Current Condition Start: 10/14/19 13:59 Freq: Status: Active Protocol: Document 10/15/19 12:00 AW (Rec: 10/16/19 17:39 AW [id number]) Current Condition History of Current Condition Onset Date 4 months Current Complaints right LE weakness, decreased activity tolerance History of Current Condition Efe is a of the [place] conflict who sustained R LE injury during service, rehabilitated for most of a year in an attempt to salvage the limb, and then 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 He has used the same prosthesis for many years with a rigid socket, but he began to experience ischial irritation and switched to a [employer] socketless socket under the care of Flory Linares at [facility] ~4 months ago . Since that time, he has enjoyed increased comfort with his prosthesis and is able to wear it longer during the day but notices that he becomes fatigued more easily. He seeks physical therapy for strengthening and gait training in order to maximize use of his prosthesis with new socket. Prior Treatments and Tests Under the care of ADELINA Godfrey at [facility]&. Future Testing and Treatments Planned none identified Treatment Goals Patient/Caregiver Goals Efe would like to get more use out of his new prosthesis with new socket and be able to walk longer distances with less fatigue. Prior Functional Status Baseline Function- ADL's Independent Baseline Function- Mobility Independent Baseline Function- Gait independent with prosthesis Baseline Function- Work/School retired Baseline Function- Recreation/Hobbies Pt likes to spend time working in the yard Current Functional Impairments (Reported) Functional Limitations- Mobility/Gait Pt reports he is more fatigued with ambulation than he was with his previous socket Functional Limitations- Recreation/ Decreased confidence on uneven Hobbies surfaces PT-OP-C Subjective Start: 10/14/19 13:59 Freq: Status: Active Protocol: Document 10/31/19 13:00 SP (Rec: 10/31/19 16:42 SP [id number]) OP-PT Subjective Patient Comments Patient Comments Pt reported fell yesterday on lance/ filmed sidewalk walking without prothetic donned using B forearm crutches, landed directly down onto tip of end of R stump and R wrist and thumb (noted bandaid on hand and fingertip/nail). Just a normal fall. Reported tender over posterior R tricep, elbow , hand and end of stump and tore little of 1st MTP nail but feels better with prothetic donned to decreased pressure on R UE today but wants to limit standing activities today. Pt stated hasn't called prothetist thought would wait til end of PT, thinking muscle getting stronger and prothetic feels not as much room for stump expand. PT-OP-E Functional Tests Start: 10/14/19 13:59 Freq: Status: Active Protocol: Document 10/17/19 14:30 SP (Rec: 10/17/19 14:32 SP [id number]) Functional Tests 6 Minute Walk Test Distance 1038 Device Used prosthetic Comments hip flexor, adductor R tiring, noted slight circumduction, slower pace end PT-OP-F Manual Assessment Start: 10/14/19 13:59 Freq: Status: Active Protocol: Document 10/15/19 12:00 AW (Rec: 10/16/19 17:39 AW [id number]) Manual Assessments Other Manual Assessments Other Manual Assessments Global atrophy of right hip musculature relative to left. PT-OP-G Mobility & Gait Start: 10/14/19 13:59 Freq: Status: Active Protocol: Document 10/15/19 12:00 AW (Rec: 10/16/19 17:39 AW [id number]) OP Mobility Evaluation Functional Movements Other Functional Movements Independent with all functional mobility OP Gait Assessment Gait Gait Assistance Required: Independent Distance (Feet) 200 Assistive Devices Orthotic/Prosthetic Devices or Brace: Yes Gait Deviations General Gait Pattern Lateral Trunk Lean,Wide Based Gait Factors Limiting Gait Function Factors Limiting Gait Function Decreased Activity Tolerance, Decreased Strength Comments Gait Comments Pt walks with increased hip flexion on the R LE to clear his foot. Contralateral hip drop during R LE stance. Mild circumduction and overuse of adductors during R LE swing phase. Right lateral trunk lean during R LE stance. Stair Climbing Evaluation Evaluation Level of Assist On Stairs Independent Devices Stair Climbing Assistive Devices Left Railing,Right Railing Technique/Endurance Stair Climbing Direction Ascend and Descend Stair Climbing Technique Step Over Step,Step to Step Number of Steps Climbed 4 Stair Climbing Set # Repetitions (reps) 3 Comments Stair Climbing Comments Pt ascended using B rails and step over step pattern. He is able to descend with B rails and step over step if he is careful to position his right forefoot off the step, but he tends to use a step-to pattern descending for increased confidence. PT-OP-K Range of Motion Start: 10/14/19 13:59 Freq: Status: Active Protocol: Document 10/15/19 12:00 AW (Rec: 10/16/19 17:39 AW [id number]) Hip Goniometric Range of Motion Hip ROM Limitations Comments B hip AROM WNL and normal end feels with PROM PT-OP-M Strength Start: 10/14/19 13:59 Freq: Status: Active Protocol: Document 10/15/19 12:00 AW (Rec: 10/16/19 17:39 AW [id number]) Hip Strength Hip Manual Muscle Testing Right Flexion (L2) 4 Good Extension (S1) 4- Good- Abduction 4- Good- Adduction 4 Good Left Flexion (L2) 4+ Good+ Extension (S1) 4- Good- Abduction 4- Good- Adduction 4 Good External Rotation 4 Good Internal Rotation 4 Good Knee Strength Knee Manual Muscle Testing Left Flexion (S2) 5 Normal Extension (L3) 5 Normal Ankle/Foot Strength Ankle and Foot Manual Muscle Testing Left Dorsiflexion (L4) 5 Normal Plantarflexion (S1) 5 Normal PT-OP-Q Treatments Start: 10/14/19 13:59 Freq: Status: Active Protocol: Document 10/31/19 13:00 SP (Rec: 10/31/19 16:42 SP [id number]) Cardio Equipment Recumbent Bicycle Duration (Minutes) 6 Resistance 4 Seat Position 4 Therapeutic Exercises Supine Exercises Christiano stretch Supine Exercise Name off side of table Side right Equipment Used strap; with prosthesis Reps/Minutes 2 min Comments cued awareness not allow LS arch bridge Supine Exercise Name prosthetic donned (HEP) Reps/Minutes 2x10 Comments cued level pelvis Prone Exercises firehydrant Side right Reps/Minutes 2x10 Comments cued level pelvis glut set Side bilateral Reps/Minutes 10 x10 Comments then add quad set (hip ext L) Sidelying Exercises clamshell Sidelying Exercise Name clamshell Side right Resistance AROM x10, TB #1 (at mid stump) x10 Reps/Minutes x10 reps each Comments added to HEP sidelying hip abduction Sidelying Exercise Name sidelying hip abduction Side right Resistance AROM Equipment Used prosthetic donned Reps/Minutes x10 Comments HEP PT-OP-T Assessment and Plan Start: 10/14/19 13:59 Freq: Status: Active Protocol: Document 10/31/19 13:00 SP (Rec: 10/31/19 16:42 SP [id number]) Physical Therapy Assessment Goals 4 Impairment impaired B LE strength Short Term Goal (STG) Pt will demonstrate 4+/5 strength in bilateral hips all planes. STG Duration 11/26/2019 [employer] Business Analyst Goal (LTG) Pt will demonstrate 5/5 strength in bilateral hips all planes. LTG Duration 01/07/2020 3 Impairment Pt scores 23/30 on Functional Gait Assessment Nursing Home Goal (LTG) Pt will score 27/30 or better to demonstrate improvement in dynamic balance and reduced risk of falls. LTG Duration 01/07/2020 2 Impairment Pt scores 59/80 on LEFS Short Term Goal (STG) Pt will score 66/80 or better to demonstrate improved function with daily activities . STG Duration 11/26/2019 Nursing Home Goal (LTG) Pt will score 72/80 or better to demonstrate improved function with daily activities . LTG Duration 01/07/2020 1 Impairment Pt has no appropriate HEP Short Term Goal (STG) Pt will be independent with HEP for support of therapy services provided in clinic. STG Duration 11/12/2019 Nursing Home Goal (LTG) Pt will be independent with maintenance HEP LTG Duration 01/07/2020 Assessment Summary Assessment JEWELLERY DESIGNER educated might be beneficial to see prothetist sooner than later to adjust socket to allow more room and skin integrity while working with PT progressing in strengthening and allow supervision with HEP with education in adjustments as needed. Today tx focused on supine/side/prone/ quadruped ex with posterior chain and hip abd strengthening with positive feedback. I'm glad I came today, gave me exercise I can do to progress strengthening without having to stand on sore stump. No pain during ex more than soreness end of stump arrived with. Physical Therapy Plan Frequency and Duration Frequency of Treatment 2x/Week Duration of Treatment 12 weeks Plan of Care Start Date 10/15/19 Plan of Care End Date 01/07/20 Therapeutic Interventions Therapeutic Interventions Balance Training,Gait Training ,Home Exercise Program,Joint Mobilizations,Manual Therapy, Neuromuscular Re-education, Orthotic/Prosthetic Management ,Patient/Caregiver Education, Self-Care/Home Management,Soft Tissue Mobilization,Taping, Therapeutic Activities, Therapeutic Exercises Next Visit Focus/Plan Next Note Type Treatment Note Next Visit Plan Assess response to added prone glut set B with and without quad set, quadruped firehydrant R. Continue per PT POC: HEP review and progress standing HEP for gait if tolerated.
--- NOTE | 2019-11-05 14:29 | PT.OTN ---
Current Diagnoses Muscle weakness (generalized) (11/05/19) Unspecified abnormalities of gait and mobility (11/05/19) Acquired absence of right leg above knee (11/05/19) Physical Therapy Treatment Note PT-OP-A Visit Information Start: 10/14/19 13:59 Freq: Status: Active Protocol: Document 11/05/19 14:19 AW (Rec: 11/05/19 14:28 AW [id number]) Out-Patient Physical Therapy Visit Information Visit Information Visit Type Treatment Note Visit Start Time 13:45 Visit Stop Time 14:15 Total Visit Minutes 30 Visit Number 6 Number of METROLOGY MANAGER Visits 0 Evaluation Information Evaluation Date 10/15/19 PT-OP-B Current Condition Start: 10/14/19 13:59 Freq: Status: Active Protocol: Document 10/15/19 12:00 AW (Rec: 10/16/19 17:39 AW [id number]) Current Condition History of Current Condition Onset Date 4 months Current Complaints right LE weakness, decreased activity tolerance History of Current Condition Efe is a of the [place] conflict who sustained R LE injury during service, rehabilitated for most of a year in an attempt to salvage the limb, and then 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 He has used the same prosthesis for many years with a rigid socket, but he began to experience ischial irritation and switched to a [employer] socketless socket under the care of Flory Linares at [facility] ~4 months ago . Since that time, he has enjoyed increased comfort with his prosthesis and is able to wear it longer during the day but notices that he becomes fatigued more easily. He seeks physical therapy for strengthening and gait training in order to maximize use of his prosthesis with new socket. Prior Treatments and Tests Under the care of ADELINA Godfrey at [facility]. Future Testing and Treatments Planned none identified Treatment Goals Patient/Caregiver Goals Efe would like to get more use out of his new prosthesis with new socket and be able to walk longer distances with less fatigue. Prior Functional Status Baseline Function- ADL's Independent Baseline Function- Mobility Independent Baseline Function- Gait independent with prosthesis Baseline Function- Work/School retired Baseline Function- Recreation/Hobbies Pt likes to spend time working in the yard Current Functional Impairments (Reported) Functional Limitations- Mobility/Gait Pt reports he is more fatigued with ambulation than he was with his previous socket Functional Limitations- Recreation/ Decreased confidence on uneven Hobbies surfaces PT-OP-C Subjective Start: 10/14/19 13:59 Freq: Status: Active Protocol: Document 11/05/19 14:19 AW (Rec: 11/05/19 14:28 AW [id number]) OP-PT Subjective Patient Comments Patient Comments Pt reports no sign of skin breakdown, only bruises on his distal right leg from his fall. He prefers to continue treatment today with non- weighbearing activities. PT-OP-E Functional Tests Start: 10/14/19 13:59 Freq: Status: Active Protocol: Document 10/17/19 14:30 SP (Rec: 10/17/19 14:32 SP [id number]) Functional Tests 6 Minute Walk Test Distance 1038 Device Used prosthetic Comments hip flexor, adductor R tiring, noted slight circumduction, slower pace end PT-OP-F Manual Assessment Start: 10/14/19 13:59 Freq: Status: Active Protocol: Document 10/15/19 12:00 AW (Rec: 10/16/19 17:39 AW [id number]) Manual Assessments Other Manual Assessments Other Manual Assessments Global atrophy of right hip musculature relative to left. PT-OP-G Mobility & Gait Start: 10/14/19 13:59 Freq: Status: Active Protocol: Document 10/15/19 12:00 AW (Rec: 10/16/19 17:39 AW [id number]) OP Mobility Evaluation Functional Movements Other Functional Movements Independent with all functional mobility OP Gait Assessment Gait Gait Assistance Required: Independent Distance (Feet) 200 Assistive Devices Orthotic/Prosthetic Devices or Brace: Yes Gait Deviations General Gait Pattern Lateral Trunk Lean,Wide Based Gait Factors Limiting Gait Function Factors Limiting Gait Function Decreased Activity Tolerance, Decreased Strength Comments Gait Comments Pt walks with increased hip flexion on the R LE to clear his foot. Contralateral hip drop during R LE stance. Mild circumduction and overuse of adductors during R LE swing phase. Right lateral trunk lean during R LE stance. Stair Climbing Evaluation Evaluation Level of Assist On Stairs Independent Devices Stair Climbing Assistive Devices Left Railing,Right Railing Technique/Endurance Stair Climbing Direction Ascend and Descend Stair Climbing Technique Step Over Step,Step to Step Number of Steps Climbed 4 Stair Climbing Set # Repetitions (reps) 3 Comments Stair Climbing Comments Pt ascended using B rails and step over step pattern. He is able to descend with B rails and step over step if he is careful to position his right forefoot off the step, but he tends to use a step-to pattern descending for increased confidence. PT-OP-K Range of Motion Start: 10/14/19 13:59 Freq: Status: Active Protocol: Document 10/15/19 12:00 AW (Rec: 10/16/19 17:39 AW [id number]) Hip Goniometric Range of Motion Hip ROM Limitations Comments B hip AROM WNL and normal end feels with PROM PT-OP-M Strength Start: 10/14/19 13:59 Freq: Status: Active Protocol: Document 10/15/19 12:00 AW (Rec: 10/16/19 17:39 AW [id number]) Hip Strength Hip Manual Muscle Testing Right Flexion (L2) 4 Good Extension (S1) 4- Good- Abduction 4- Good- Adduction 4 Good Left Flexion (L2) 4+ Good+ Extension (S1) 4- Good- Abduction 4- Good- Adduction 4 Good External Rotation 4 Good Internal Rotation 4 Good Knee Strength Knee Manual Muscle Testing Left Flexion (S2) 5 Normal Extension (L3) 5 Normal Ankle/Foot Strength Ankle and Foot Manual Muscle Testing Left Dorsiflexion (L4) 5 Normal Plantarflexion (S1) 5 Normal PT-OP-Q Treatments Start: 10/14/19 13:59 Freq: Status: Active Protocol: Document 11/05/19 14:19 AW (Rec: 11/05/19 14:28 AW [id number]) Cardio Equipment Recumbent Elliptical (Biodex) Duration (Minutes) 6 Resistance 3 Seat Position 16 Therapeutic Exercises Supine Exercises hip flexor march Supine Exercise Name hip flexor march Side right Resistance manual Equipment Used prosthesis donned Reps/Minutes 2x10 reps Comments limb off table; march into hooklying position Christiano stretch Supine Exercise Name off side of table Side right Equipment Used strap; with prosthesis Reps/Minutes 2 min Comments cued awareness not allow LS arch bridge Supine Exercise Name prosthetic donned (HEP) Resistance level 3 TB around distal thigh Reps/Minutes 2x10 Comments cued level pelvis Prone Exercises hip extension Prone Exercise Name hip extension Side bilateral Reps/Minutes 1x15 reps Comments knee bent, prosthesis donned Sidelying Exercises clamshell Sidelying Exercise Name clamshell Side right Resistance AROM x10, TB #2 (at mid stump) x10 Reps/Minutes x10 reps each Comments added to HEP PT-OP-T Assessment and Plan Start: 10/14/19 13:59 Freq: Status: Active Protocol: Document 11/05/19 14:19 AW (Rec: 11/05/19 14:28 AW [id number]) Physical Therapy Assessment Goals 4 Impairment impaired B LE strength Short Term Goal (STG) Pt will demonstrate 4+/5 strength in bilateral hips all planes. STG Duration 11/26/2019 Half-Way Goal (LTG) Pt will demonstrate 5/5 strength in bilateral hips all planes. LTG Duration 01/07/2020 3 Impairment Pt scores 23/30 on Functional Gait Assessment Half-Way Goal (LTG) Pt will score 27/30 or better to demonstrate improvement in dynamic balance and reduced risk of falls. LTG Duration 01/07/2020 2 Impairment Pt scores 59/80 on LEFS Short Term Goal (STG) Pt will score 66/80 or better to demonstrate improved function with daily activities . STG Duration 11/26/2019 Manager Building Goal (LTG) Pt will score 72/80 or better to demonstrate improved function with daily activities . LTG Duration 01/07/2020 1 Impairment Pt has no appropriate HEP Short Term Goal (STG) Pt will be independent with HEP for support of therapy services provided in clinic. STG Duration 11/12/2019 Half-Way Goal (LTG) Pt will be independent with maintenance HEP LTG Duration 01/07/2020 Assessment Summary Assessment PT continued to recommend pt would benefit from scheduling with valet attendant with no need to wait for PT plan of care to end. Pt preferred to focus on mat exercises today and limit weightbearing while his bruises heal, accounting for short session. Physical Therapy Plan Frequency and Duration Frequency of Treatment 2x/Week Duration of Treatment 12 weeks Plan of Care Start Date 10/15/19 Plan of Care End Date 01/07/20 Therapeutic Interventions Therapeutic Interventions Balance Training,Gait Training ,Home Exercise Program,Joint Mobilizations,Manual Therapy, Neuromuscular Re-education, Orthotic/Prosthetic Management ,Patient/Caregiver Education, Self-Care/Home Management,Soft Tissue Mobilization,Taping, Therapeutic Activities, Therapeutic Exercises Next Visit Focus/Plan Next Visit Plan Continue per PT POC: HEP review and progress standing HEP for gait if tolerated.
--- NOTE | 2019-11-12 12:00 | PT.OTN ---
Current Diagnoses Muscle weakness (generalized) (11/12/19) Unspecified abnormalities of gait and mobility (11/12/19) Acquired absence of right leg above knee (11/12/19) Physical Therapy Treatment Note PT-OP-A Visit Information Start: 10/14/19 13:59 Freq: Status: Active Protocol: Document 11/12/19 12:00 DLM (Rec: 11/12/19 13:07 DLM [id number]) Out-Patient Physical Therapy Visit Information Visit Information Visit Type Treatment Note Visit Start Time 12:00 Visit Stop Time 12:50 Total Visit Minutes 50 Visit Number 7 Number of THINNER SPRAYER Visits 0 Evaluation Information Evaluation Date 10/15/19 PT-OP-B Current Condition Start: 10/14/19 13:59 Freq: Status: Active Protocol: Document 10/15/19 12:00 AW (Rec: 10/16/19 17:39 AW [id number]) Current Condition History of Current Condition Onset Date 4 months Current Complaints right LE weakness, decreased activity tolerance History of Current Condition Efe is a of the [place] conflict who sustained R LE injury during service, rehabilitated for most of a year in an attempt to salvage the limb, and then 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 He has used the same prosthesis for many years with a rigid socket, but he began to experience ischial irritation and switched to a [employer] socketless socket under the care of Flory Linares at [facility] ~4 months ago . Since that time, he has enjoyed increased comfort with his prosthesis and is able to wear it longer during the day but notices that he becomes fatigued more easily. He seeks physical therapy for strengthening and gait training in order to maximize use of his prosthesis with new socket. Prior Treatments and Tests Under the care of ADELINA Godfrey at [facility]. Future Testing and Treatments Planned none identified Treatment Goals Patient/Caregiver Goals Efe would like to get more use out of his new prosthesis with new socket and be able to walk longer distances with less fatigue. Prior Functional Status Baseline Function- ADL's Independent Baseline Function- Mobility Independent Baseline Function- Gait independent with prosthesis Baseline Function- Work/School retired Baseline Function- Recreation/Hobbies Pt likes to spend time working in the yard Current Functional Impairments (Reported) Functional Limitations- Mobility/Gait Pt reports he is more fatigued with ambulation than he was with his previous socket Functional Limitations- Recreation/ Decreased confidence on uneven Hobbies surfaces PT-OP-C Subjective Start: 10/14/19 13:59 Freq: Status: Active Protocol: Document 11/12/19 12:00 DLM (Rec: 11/12/19 13:07 DLM [id number]) OP-PT Subjective Patient Comments Patient Comments He reports he has recovered from his fall. He feels he can do his normal exercise routine. He has been exercising at home but reports not in a regular routine yet. He wears his prosthesis 6-8 hrs a day. Patient Reported Progress Improving PT-OP-E Functional Tests Start: 10/14/19 13:59 Freq: Status: Active Protocol: Document 10/17/19 14:30 SP (Rec: 10/17/19 14:32 SP [id number]) Functional Tests 6 Minute Walk Test Distance 1038 Device Used prosthetic Comments hip flexor, adductor R tiring, noted slight circumduction, slower pace end PT-OP-F Manual Assessment Start: 10/14/19 13:59 Freq: Status: Active Protocol: Document 10/15/19 12:00 AW (Rec: 10/16/19 17:39 AW [id number]) Manual Assessments Other Manual Assessments Other Manual Assessments Global atrophy of right hip musculature relative to left. PT-OP-G Mobility & Gait Start: 10/14/19 13:59 Freq: Status: Active Protocol: Document 10/15/19 12:00 AW (Rec: 10/16/19 17:39 AW [id number]) OP Mobility Evaluation Functional Movements Other Functional Movements Independent with all functional mobility OP Gait Assessment Gait Gait Assistance Required: Independent Distance (Feet) 200 Assistive Devices Orthotic/Prosthetic Devices or Brace: Yes Gait Deviations General Gait Pattern Lateral Trunk Lean,Wide Based Gait Factors Limiting Gait Function Factors Limiting Gait Function Decreased Activity Tolerance, Decreased Strength Comments Gait Comments Pt walks with increased hip flexion on the R LE to clear his foot. Contralateral hip drop during R LE stance. Mild circumduction and overuse of adductors during R LE swing phase. Right lateral trunk lean during R LE stance. Stair Climbing Evaluation Evaluation Level of Assist On Stairs Independent Devices Stair Climbing Assistive Devices Left Railing,Right Railing Technique/Endurance Stair Climbing Direction Ascend and Descend Stair Climbing Technique Step Over Step,Step to Step Number of Steps Climbed 4 Stair Climbing Set # Repetitions (reps) 3 Comments Stair Climbing Comments Pt ascended using B rails and step over step pattern. He is able to descend with B rails and step over step if he is careful to position his right forefoot off the step, but he tends to use a step-to pattern descending for increased confidence. PT-OP-K Range of Motion Start: 10/14/19 13:59 Freq: Status: Active Protocol: Document 10/15/19 12:00 AW (Rec: 10/16/19 17:39 AW [id number]) Hip Goniometric Range of Motion Hip ROM Limitations Comments B hip AROM WNL and normal end feels with PROM PT-OP-M Strength Start: 10/14/19 13:59 Freq: Status: Active Protocol: Document 10/15/19 12:00 AW (Rec: 10/16/19 17:39 AW [id number]) Hip Strength Hip Manual Muscle Testing Right Flexion (L2) 4 Good Extension (S1) 4- Good- Abduction 4- Good- Adduction 4 Good Left Flexion (L2) 4+ Good+ Extension (S1) 4- Good- Abduction 4- Good- Adduction 4 Good External Rotation 4 Good Internal Rotation 4 Good Knee Strength Knee Manual Muscle Testing Left Flexion (S2) 5 Normal Extension (L3) 5 Normal Ankle/Foot Strength Ankle and Foot Manual Muscle Testing Left Dorsiflexion (L4) 5 Normal Plantarflexion (S1) 5 Normal PT-OP-Q Treatments Start: 10/14/19 13:59 Freq: Status: Active Protocol: Document 11/12/19 12:00 DLM (Rec: 11/12/19 13:07 DLM [id number]) Cardio Equipment Recumbent Bicycle Duration (Minutes) 7 Resistance 4 Seat Position 4 Therapeutic Exercises Supine Exercises hip flexor march Supine Exercise Name hip flexor march Side right Resistance manual Equipment Used prosthesis donned Reps/Minutes 2x10 reps Comments limb off table; march into hooklying position Christiano stretch Supine Exercise Name off side of table Side right Equipment Used strap; with prosthesis Reps/Minutes 2 min Comments cued awareness not allow LS arch bridge Supine Exercise Name prosthetic donned Resistance level 3 TB around distal thigh Reps/Minutes 2x10 Comments cued level pelvis Prone Exercises hip extension Prone Exercise Name hip extension Side bilateral Reps/Minutes 1x15 reps Comments knee bent, prosthesis donned Sidelying Exercises clamshell Sidelying Exercise Name clamshell Side right Reps/Minutes x10 reps each Comments provided handout sidelying hip abduction Sidelying Exercise Name sidelying hip abduction Side right Resistance AROM Equipment Used prosthetic donned Reps/Minutes x10 Comments HEP Sitting Exercises Hip Abduction Sitting Exercise Name band around thighs Side bilateral Resistance L2 exercise band Reps/Minutes x 10 reps Comments ex he can do seated at desk Hip flexion Sitting Exercise Name band around thighs Side bilateral Resistance L2 exercise band Reps/Minutes x 10 reps Comments ex he can do seated at desk Standing Exercises Single Limb Standing Standing Exercise Name balancing/stabalization Side right Equipment Used used left SLS for training of right Reps/Minutes x 8 reps Comments pt unable to hold without UE support band walk Standing Exercise Name lateral Equipment Used level 1 TB Reps/Minutes 20 ft x2 laps each direction Comments cued foot clearance with level pelvis glut med facilitation sit to stands Standing Exercise Name without UE support Reps/Minutes x 10 reps Self-Care/Home Management Treatment Education Patient Education Home Exercise Program Other Education educated in his need to get in a regular routine of exercises, discussed strategies Activities Self-Care/Home Management Activities he reports he spends a lot of time seated working on his computer PT-OP-T Assessment and Plan Start: 10/14/19 13:59 Freq: Status: Active Protocol: Document 11/12/19 12:00 DLM (Rec: 11/12/19 13:07 DLM [id number]) Physical Therapy Assessment Goals 4 Impairment impaired B LE strength Short Term Goal (STG) Pt will demonstrate 4+/5 strength in bilateral hips all planes. STG Duration 11/26/2019 [facility] Goal (LTG) Pt will demonstrate 5/5 strength in bilateral hips all planes. LTG Duration 01/07/2020 3 Impairment Pt scores 23/30 on Functional Gait Assessment Insole Toe Snipping Machine Operator Goal (LTG) Pt will score 27/30 or better to demonstrate improvement in dynamic balance and reduced risk of falls. LTG Duration 01/07/2020 2 Impairment Pt scores 59/80 on LEFS Short Term Goal (STG) Pt will score 66/80 or better to demonstrate improved function with daily activities . STG Duration 11/26/2019 Insole Toe Snipping Machine Operator Goal (LTG) Pt will score 72/80 or better to demonstrate improved function with daily activities . LTG Duration 01/07/2020 1 Impairment Pt has no appropriate HEP Short Term Goal (STG) Pt will be independent with HEP for support of therapy services provided in clinic. STG Duration 11/12/2019 Insole Toe Snipping Machine Operator Goal (LTG) Pt will be independent with maintenance HEP LTG Duration 01/07/2020 Progress Towards Goals Progress Towards Goals Progressing Toward Goals Assessment Summary Assessment Don tolerated his exercises well. His injuries from his fall have resolved so he can return to weight bearing ex. Added some sitting ex that he can do while seated at computer to increase his exercises during the day. He is aware he should walk more for ex but does not want to be out in rainy/snowy weather. Functional weakness/ instability continues with single limb standing on right LE. Physical Therapy Plan Frequency and Duration Frequency of Treatment 2x/Week Duration of Treatment 12 weeks Plan of Care Start Date 10/15/19 Plan of Care End Date 01/07/20 Therapeutic Interventions Therapeutic Interventions Balance Training,Gait Training ,Home Exercise Program,Joint Mobilizations,Manual Therapy, Neuromuscular Re-education, Orthotic/Prosthetic Management ,Patient/Caregiver Education, Self-Care/Home Management,Soft Tissue Mobilization,Taping, Therapeutic Activities, Therapeutic Exercises Next Visit Focus/Plan Next Note Type Treatment Note Next Visit Plan progress standing exercises as tolerated
--- NOTE | 2019-11-14 14:34 | PT.OTN ---
Current Diagnoses Muscle weakness (generalized) (11/14/19) Unspecified abnormalities of gait and mobility (11/14/19) Acquired absence of right leg above knee (11/14/19) Physical Therapy Treatment Note PT-OP-A Visit Information Start: 10/14/19 13:59 Freq: Status: Active Protocol: Document 11/14/19 13:50 DCW (Rec: 11/14/19 14:34 DCW [id number]) Out-Patient Physical Therapy Visit Information Visit Information Visit Type Treatment Note Visit Start Time 13:50 Visit Stop Time 14:30 Total Visit Minutes 40 Visit Number 8 Number of DISABILITIES SERVICES OFFICER Visits 0 Evaluation Information Evaluation Date 10/15/19 PT-OP-B Current Condition Start: 10/14/19 13:59 Freq: Status: Active Protocol: Document 10/15/19 12:00 AW (Rec: 10/16/19 17:39 AW [id number]) Current Condition History of Current Condition Onset Date 4 months Current Complaints right LE weakness, decreased activity tolerance History of Current Condition Efe is a of the [place] conflict who sustained R LE injury during service, rehabilitated for most of a year in an attempt to salvage the limb, and then 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 He has used the same prosthesis for many years with a rigid socket, but he began to experience ischial irritation and switched to a [employer] socketless socket under the care of Flory Linares at [facility] ~4 months ago . Since that time, he has enjoyed increased comfort with his prosthesis and is able to wear it longer during the day but notices that he becomes fatigued more easily. He seeks physical therapy for strengthening and gait training in order to maximize use of his prosthesis with new socket. Prior Treatments and Tests Under the care of ADELINA Godfrey at [facility]&. Future Testing and Treatments Planned none identified Treatment Goals Patient/Caregiver Goals Efe would like to get more use out of his new prosthesis with new socket and be able to walk longer distances with less fatigue. Prior Functional Status Baseline Function- ADL's Independent Baseline Function- Mobility Independent Baseline Function- Gait independent with prosthesis Baseline Function- Work/School retired Baseline Function- Recreation/Hobbies Pt likes to spend time working in the yard Current Functional Impairments (Reported) Functional Limitations- Mobility/Gait Pt reports he is more fatigued with ambulation than he was with his previous socket Functional Limitations- Recreation/ Decreased confidence on uneven Hobbies surfaces PT-OP-C Subjective Start: 10/14/19 13:59 Freq: Status: Active Protocol: Document 11/14/19 13:50 DCW (Rec: 11/14/19 14:34 DCW [id number]) OP-PT Subjective Patient Comments Patient Comments Pt reports that he is feeling really good today, back to normal following his fall a few weeks ago. 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 PT-OP-G Mobility & Gait Start: 10/14/19 13:59 Freq: Status: Active Protocol: Document 10/15/19 12:00 AW (Rec: 10/16/19 17:39 AW [id number]) OP Mobility Evaluation Functional Movements Other Functional Movements Independent with all functional mobility OP Gait Assessment Gait Gait Assistance Required: Independent Distance (Feet) 200 Assistive Devices Orthotic/Prosthetic Devices or Brace: Yes Gait Deviations General Gait Pattern Lateral Trunk Lean,Wide Based Gait Factors Limiting Gait Function Factors Limiting Gait Function Decreased Activity Tolerance, Decreased Strength Comments Gait Comments Pt walks with increased hip flexion on the R LE to clear his foot. Contralateral hip drop during R LE stance. Mild circumduction and overuse of adductors during R LE swing phase. Right lateral trunk lean during R LE stance. Stair Climbing Evaluation Evaluation Level of Assist On Stairs Independent Devices Stair Climbing Assistive Devices Left Railing,Right Railing Technique/Endurance Stair Climbing Direction Ascend and Descend Stair Climbing Technique Step Over Step,Step to Step Number of Steps Climbed 4 Stair Climbing Set # Repetitions (reps) 3 Comments Stair Climbing Comments Pt ascended using B rails and step over step pattern. He is able to descend with B rails and step over step if he is careful to position his right forefoot off the step, but he tends to use a step-to pattern descending for increased confidence. PT-OP-K Range of Motion Start: 10/14/19 13:59 Freq: Status: Active Protocol: Document 10/15/19 12:00 AW (Rec: 10/16/19 17:39 AW [id number]) Hip Goniometric Range of Motion Hip ROM Limitations Comments B hip AROM WNL and normal end feels with PROM PT-OP-M Strength Start: 10/14/19 13:59 Freq: Status: Active Protocol: Document 10/15/19 12:00 AW (Rec: 10/16/19 17:39 AW [id number]) Hip Strength Hip Manual Muscle Testing Right Flexion (L2) 4 Good Extension (S1) 4- Good- Abduction 4- Good- Adduction 4 Good Left Flexion (L2) 4+ Good+ Extension (S1) 4- Good- Abduction 4- Good- Adduction 4 Good External Rotation 4 Good Internal Rotation 4 Good Knee Strength Knee Manual Muscle Testing Left Flexion (S2) 5 Normal Extension (L3) 5 Normal Ankle/Foot Strength Ankle and Foot Manual Muscle Testing Left Dorsiflexion (L4) 5 Normal Plantarflexion (S1) 5 Normal PT-OP-Q Treatments Start: 10/14/19 13:59 Freq: Status: Active Protocol: Document 11/14/19 13:50 DCW (Rec: 11/14/19 14:34 DCW [id number]) Cardio Equipment Recumbent Bicycle Duration (Minutes) 6 Resistance 4 Seat Position 5 Gym Equipment Shuttle Recovery Bilateral Squats Resistance 75# Shuttle Recovery Platform Stable Therapeutic Exercises Prone Exercises hip extension Comments pt requested different exercise d/t back pain Sidelying Exercises clamshell Sidelying Exercise Name clamshell Side right Reps/Minutes x10 reps each Comments provided handout sidelying hip abduction Sidelying Exercise Name sidelying hip abduction Side right Resistance AROM Equipment Used prosthetic donned Reps/Minutes x10 Comments HEP Sitting Exercises Hip Abduction Sitting Exercise Name band around thighs Side bilateral Resistance L2 exercise band Reps/Minutes x 10 reps Comments ex he can do seated at desk Hip flexion Sitting Exercise Name band around thighs Side bilateral Resistance L2 exercise band Reps/Minutes x 10 reps Comments ex he can do seated at desk Standing Exercises Hip Abduction Standing Exercise Name Hip Abduction Side bilateral Resistance Lv 1 Equipment Used T-band Comments prosthetic donned Hip Extension Standing Exercise Name Hip Extension Side bilateral Resistance Lv 1 Equipment Used T-band Comments prosthetic donned Single Limb Standing Standing Exercise Name balancing/stabalization Side right Equipment Used used left SLS for training of right Reps/Minutes x 8 reps Comments pt unable to hold without UE support PT-OP-T Assessment and Plan Start: 10/14/19 13:59 Freq: Status: Active Protocol: Document 11/14/19 13:50 DCW (Rec: 11/14/19 14:34 DCW [id number]) Physical Therapy Assessment Goals 4 Impairment impaired B LE strength Short Term Goal (STG) Pt will demonstrate 4+/5 strength in bilateral hips all planes. STG Duration 11/26/2019 Intermediate Goal (LTG) Pt will demonstrate 5/5 strength in bilateral hips all planes. LTG Duration 01/07/2020 3 Impairment Pt scores 23/30 on Functional Gait Assessment Environmental Health Technologist Goal (LTG) Pt will score 27/30 or better to demonstrate improvement in dynamic balance and reduced risk of falls. LTG Duration 01/07/2020 2 Impairment Pt scores 59/80 on LEFS Short Term Goal (STG) Pt will score 66/80 or better to demonstrate improved function with daily activities . STG Duration 11/26/2019 Intermediate Goal (LTG) Pt will score 72/80 or better to demonstrate improved function with daily activities . LTG Duration 01/07/2020 1 Impairment Pt has no appropriate HEP Short Term Goal (STG) Pt will be independent with HEP for support of therapy services provided in clinic. STG Duration 11/12/2019 Environmental Health Technologist Goal (LTG) Pt will be independent with maintenance HEP LTG Duration 01/07/2020 Assessment Summary Assessment Pt making progress with the strength in his residual limb, although still experiencing some difficulty properly firing the correct muscle group with extension. Pt requires UE support to attempt any SLS on his right. Physical Therapy Plan Frequency and Duration Frequency of Treatment 2x/Week Duration of Treatment 12 weeks Plan of Care Start Date 10/15/19 Plan of Care End Date 01/07/20 Therapeutic Interventions Therapeutic Interventions Balance Training,Gait Training ,Home Exercise Program,Joint Mobilizations,Manual Therapy, Neuromuscular Re-education, Orthotic/Prosthetic Management ,Patient/Caregiver Education, Self-Care/Home Management,Soft Tissue Mobilization,Taping, Therapeutic Activities, Therapeutic Exercises Next Visit Focus/Plan Next Note Type Treatment Note Next Visit Plan progress standing exercises as tolerated
--- NOTE | 2019-11-18 14:31 | PT.OTN ---
Current Diagnoses Muscle weakness (generalized) (11/18/19) Unspecified abnormalities of gait and mobility (11/18/19) Acquired absence of right leg above knee (11/18/19) Physical Therapy Treatment Note PT-OP-A Visit Information Start: 10/14/19 13:59 Freq: Status: Active Protocol: Document 11/18/19 13:45 DCW (Rec: 11/18/19 14:30 DCW [id number]) Out-Patient Physical Therapy Visit Information Visit Information Visit Type Treatment Note Visit Start Time 13:45 Visit Stop Time 14:30 Total Visit Minutes 45 Visit Number 9 Number of CONCERT PROMOTER Visits 0 Evaluation Information Evaluation Date 10/15/19 PT-OP-B Current Condition Start: 10/14/19 13:59 Freq: Status: Active Protocol: Document 10/15/19 12:00 AW (Rec: 10/16/19 17:39 AW [id number]) Current Condition History of Current Condition Onset Date 4 months Current Complaints right LE weakness, decreased activity tolerance History of Current Condition Efe is a of the [place] conflict who sustained R LE injury during service, rehabilitated for most of a year in an attempt to salvage the limb, and then 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 He has used the same prosthesis for many years with a rigid socket, but he began to experience ischial irritation and switched to a [employer] socketless socket under the care of Flory Linares at [facility] ~4 months ago . Since that time, he has enjoyed increased comfort with his prosthesis and is able to wear it longer during the day but notices that he becomes fatigued more easily. He seeks physical therapy for strengthening and gait training in order to maximize use of his prosthesis with new socket. Prior Treatments and Tests Under the care of ADELINA Godfrey at [facility]. Future Testing and Treatments Planned none identified Treatment Goals Patient/Caregiver Goals Efe would like to get more use out of his new prosthesis with new socket and be able to walk longer distances with less fatigue. Prior Functional Status Baseline Function- ADL's Independent Baseline Function- Mobility Independent Baseline Function- Gait independent with prosthesis Baseline Function- Work/School retired Baseline Function- Recreation/Hobbies Pt likes to spend time working in the yard Current Functional Impairments (Reported) Functional Limitations- Mobility/Gait Pt reports he is more fatigued with ambulation than he was with his previous socket Functional Limitations- Recreation/ Decreased confidence on uneven Hobbies surfaces PT-OP-C Subjective Start: 10/14/19 13:59 Freq: Status: Active Protocol: Document 11/18/19 13:45 DCW (Rec: 11/18/19 14:30 DCW [id number]) OP-PT Subjective Patient Comments Patient Comments Due to prone exercises causing low back pain, pt prefers hip extension exercises in standing. Notes he has been doing his recreational walking with his crutches instead of his prosthesis, however has been trying his prosthesis, and is surprised with how much better he is doing than normal. 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 PT-OP-G Mobility & Gait Start: 10/14/19 13:59 Freq: Status: Active Protocol: Document 10/15/19 12:00 AW (Rec: 10/16/19 17:39 AW [id number]) OP Mobility Evaluation Functional Movements Other Functional Movements Independent with all functional mobility OP Gait Assessment Gait Gait Assistance Required: Independent Distance (Feet) 200 Assistive Devices Orthotic/Prosthetic Devices or Brace: Yes Gait Deviations General Gait Pattern Lateral Trunk Lean,Wide Based Gait Factors Limiting Gait Function Factors Limiting Gait Function Decreased Activity Tolerance, Decreased Strength Comments Gait Comments Pt walks with increased hip flexion on the R LE to clear his foot. Contralateral hip drop during R LE stance. Mild circumduction and overuse of adductors during R LE swing phase. Right lateral trunk lean during R LE stance. Stair Climbing Evaluation Evaluation Level of Assist On Stairs Independent Devices Stair Climbing Assistive Devices Left Railing,Right Railing Technique/Endurance Stair Climbing Direction Ascend and Descend Stair Climbing Technique Step Over Step,Step to Step Number of Steps Climbed 4 Stair Climbing Set # Repetitions (reps) 3 Comments Stair Climbing Comments Pt ascended using B rails and step over step pattern. He is able to descend with B rails and step over step if he is careful to position his right forefoot off the step, but he tends to use a step-to pattern descending for increased confidence. PT-OP-K Range of Motion Start: 10/14/19 13:59 Freq: Status: Active Protocol: Document 10/15/19 12:00 AW (Rec: 10/16/19 17:39 AW [id number]) Hip Goniometric Range of Motion Hip ROM Limitations Comments B hip AROM WNL and normal end feels with PROM PT-OP-M Strength Start: 10/14/19 13:59 Freq: Status: Active Protocol: Document 10/15/19 12:00 AW (Rec: 10/16/19 17:39 AW [id number]) Hip Strength Hip Manual Muscle Testing Right Flexion (L2) 4 Good Extension (S1) 4- Good- Abduction 4- Good- Adduction 4 Good Left Flexion (L2) 4+ Good+ Extension (S1) 4- Good- Abduction 4- Good- Adduction 4 Good External Rotation 4 Good Internal Rotation 4 Good Knee Strength Knee Manual Muscle Testing Left Flexion (S2) 5 Normal Extension (L3) 5 Normal Ankle/Foot Strength Ankle and Foot Manual Muscle Testing Left Dorsiflexion (L4) 5 Normal Plantarflexion (S1) 5 Normal PT-OP-Q Treatments Start: 10/14/19 13:59 Freq: Status: Active Protocol: Document 11/18/19 13:45 DCW (Rec: 11/18/19 14:30 DCW [id number]) Cardio Equipment Recumbent Bicycle Duration (Minutes) 6 Resistance 5 Seat Position 6 Gym Equipment Shuttle Recovery Bilateral Squats Resistance 75# Shuttle Recovery Platform Stable Therapeutic Exercises Supine Exercises bridge Supine Exercise Name Bridging /c alternating marching Comments prosthetic donned Sidelying Exercises clamshell Sidelying Exercise Name clamshell Side right Resistance Lv 2 Equipment Used T-band Reps/Minutes 2x10 reps each sidelying hip abduction Sidelying Exercise Name sidelying hip abduction Side right Resistance 2# Equipment Used prosthetic donned Reps/Minutes 2x10 Sitting Exercises Hip Abduction Sitting Exercise Name band around thighs Side bilateral Resistance L2 exercise band Reps/Minutes x 10 reps Standing Exercises Hip Abduction Standing Exercise Name Hip Abduction Side bilateral Resistance Lv 1 Equipment Used T-band Comments prosthetic donned Hip Extension Standing Exercise Name Hip Extension Side bilateral Resistance Lv 1 Equipment Used T-band Comments prosthetic donned Single Limb Standing Standing Exercise Name balancing/stabalization Side right Reps/Minutes x 8 reps Comments pt unable to hold without UE support band walk Standing Exercise Name lateral, fwd/bkwd Equipment Used level 1 TB Reps/Minutes 20 ft x2 laps each direction Comments fwd/bkwd performed /c band around knees PT-OP-T Assessment and Plan Start: 10/14/19 13:59 Freq: Status: Active Protocol: Document 11/18/19 13:45 DCW (Rec: 11/18/19 14:30 DCW [id number]) Physical Therapy Assessment Impairments Impairments Activity Tolerance,Balance, Functional Activities,Gait, Strength Goals 4 Impairment impaired B LE strength Short Term Goal (STG) Pt will demonstrate 4+/5 strength in bilateral hips all planes. STG Duration 11/26/2019 Retirement Goal (LTG) Pt will demonstrate 5/5 strength in bilateral hips all planes. LTG Duration 01/07/2020 3 Impairment Pt scores 23/30 on Functional Gait Assessment Substation Design Draftsperson Goal (LTG) Pt will score 27/30 or better to demonstrate improvement in dynamic balance and reduced risk of falls. LTG Duration 01/07/2020 2 Impairment Pt scores 59/80 on LEFS Short Term Goal (STG) Pt will score 66/80 or better to demonstrate improved function with daily activities . STG Duration 11/26/2019 Retirement Goal (LTG) Pt will score 72/80 or better to demonstrate improved function with daily activities . LTG Duration 01/07/2020 1 Impairment Pt has no appropriate HEP Short Term Goal (STG) Pt will be independent with HEP for support of therapy services provided in clinic. STG Duration 11/12/2019 Retirement Goal (LTG) Pt will be independent with maintenance HEP LTG Duration 01/07/2020 Assessment Summary Assessment Pt did not have any difficulty with the increased resistance today, although admitted he did have to work hard enough. Pt is doing well with his independent HEP. Physical Therapy Plan Frequency and Duration Frequency of Treatment 2x/Week Duration of Treatment 12 weeks Plan of Care Start Date 10/15/19 Plan of Care End Date 01/07/20 Therapeutic Interventions Therapeutic Interventions Balance Training,Gait Training ,Home Exercise Program,Joint Mobilizations,Manual Therapy, Neuromuscular Re-education, Orthotic/Prosthetic Management ,Patient/Caregiver Education, Self-Care/Home Management,Soft Tissue Mobilization,Taping, Therapeutic Activities, Therapeutic Exercises Next Visit Focus/Plan Next Note Type Treatment Note Next Visit Plan progress standing exercises as tolerated
--- NOTE | 2019-11-20 16:07 | PT.OTN ---
Current Diagnoses Muscle weakness (generalized) (11/20/19) Unspecified abnormalities of gait and mobility (11/20/19) Acquired absence of right leg above knee (11/20/19) Physical Therapy Treatment Note PT-OP-A Visit Information Start: 10/14/19 13:59 Freq: Status: Active Protocol: Document 11/20/19 15:20 DCW (Rec: 11/20/19 16:06 DCW [id number]) Out-Patient Physical Therapy Visit Information Visit Information Visit Type Treatment Note Visit Note 5 min late Visit Start Time 15:20 Visit Stop Time 16:00 Total Visit Minutes 40 Visit Number 10 Number of CROWN ASSEMBLY MACHINE OPERATOR Visits 0 Evaluation Information Evaluation Date 10/15/19 PT-OP-B Current Condition Start: 10/14/19 13:59 Freq: Status: Active Protocol: Document 10/15/19 12:00 AW (Rec: 10/16/19 17:39 AW [id number]) Current Condition History of Current Condition Onset Date 4 months Current Complaints right LE weakness, decreased activity tolerance History of Current Condition Efe is a of the [place] conflict who sustained R LE injury during service, rehabilitated for most of a year in an attempt to salvage the limb, and then 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 He has used the same prosthesis for many years with a rigid socket, but he began to experience ischial irritation and switched to a [email or web address] socketless socket under the care of Flory Linares at [facility] ~4 months ago . Since that time, he has enjoyed increased comfort with his prosthesis and is able to wear it longer during the day but notices that he becomes fatigued more easily. He seeks physical therapy for strengthening and gait training in order to maximize use of his prosthesis with new socket. Prior Treatments and Tests Under the care of ADELINA Godfrey at [facility]. Future Testing and Treatments Planned none identified Treatment Goals Patient/Caregiver Goals Efe would like to get more use out of his new prosthesis with new socket and be able to walk longer distances with less fatigue. Prior Functional Status Baseline Function- ADL's Independent Baseline Function- Mobility Independent Baseline Function- Gait independent with prosthesis Baseline Function- Work/School retired Baseline Function- Recreation/Hobbies Pt likes to spend time working in the yard Current Functional Impairments (Reported) Functional Limitations- Mobility/Gait Pt reports he is more fatigued with ambulation than he was with his previous socket Functional Limitations- Recreation/ Decreased confidence on uneven Hobbies surfaces PT-OP-C Subjective Start: 10/14/19 13:59 Freq: Status: Active Protocol: Document 11/20/19 15:20 DCW (Rec: 11/20/19 16:06 DCW [id number]) OP-PT Subjective Patient Comments Patient Comments Pt notes everything feels okay , I'm just trying to use it more. 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 PT-OP-G Mobility & Gait Start: 10/14/19 13:59 Freq: Status: Active Protocol: Document 10/15/19 12:00 AW (Rec: 10/16/19 17:39 AW [id number]) OP Mobility Evaluation Functional Movements Other Functional Movements Independent with all functional mobility OP Gait Assessment Gait Gait Assistance Required: Independent Distance (Feet) 200 Assistive Devices Orthotic/Prosthetic Devices or Brace: Yes Gait Deviations General Gait Pattern Lateral Trunk Lean,Wide Based Gait Factors Limiting Gait Function Factors Limiting Gait Function Decreased Activity Tolerance, Decreased Strength Comments Gait Comments Pt walks with increased hip flexion on the R LE to clear his foot. Contralateral hip drop during R LE stance. Mild circumduction and overuse of adductors during R LE swing phase. Right lateral trunk lean during R LE stance. Stair Climbing Evaluation Evaluation Level of Assist On Stairs Independent Devices Stair Climbing Assistive Devices Left Railing,Right Railing Technique/Endurance Stair Climbing Direction Ascend and Descend Stair Climbing Technique Step Over Step,Step to Step Number of Steps Climbed 4 Stair Climbing Set # Repetitions (reps) 3 Comments Stair Climbing Comments Pt ascended using B rails and step over step pattern. He is able to descend with B rails and step over step if he is careful to position his right forefoot off the step, but he tends to use a step-to pattern descending for increased confidence. PT-OP-K Range of Motion Start: 10/14/19 13:59 Freq: Status: Active Protocol: Document 10/15/19 12:00 AW (Rec: 10/16/19 17:39 AW [id number]) Hip Goniometric Range of Motion Hip ROM Limitations Comments B hip AROM WNL and normal end feels with PROM PT-OP-M Strength Start: 10/14/19 13:59 Freq: Status: Active Protocol: Document 10/15/19 12:00 AW (Rec: 10/16/19 17:39 AW [id number]) Hip Strength Hip Manual Muscle Testing Right Flexion (L2) 4 Good Extension (S1) 4- Good- Abduction 4- Good- Adduction 4 Good Left Flexion (L2) 4+ Good+ Extension (S1) 4- Good- Abduction 4- Good- Adduction 4 Good External Rotation 4 Good Internal Rotation 4 Good Knee Strength Knee Manual Muscle Testing Left Flexion (S2) 5 Normal Extension (L3) 5 Normal Ankle/Foot Strength Ankle and Foot Manual Muscle Testing Left Dorsiflexion (L4) 5 Normal Plantarflexion (S1) 5 Normal PT-OP-Q Treatments Start: 10/14/19 13:59 Freq: Status: Active Protocol: Document 11/20/19 15:20 DCW (Rec: 11/20/19 16:06 DCW [id number]) Cardio Equipment Recumbent Bicycle Duration (Minutes) 6 Resistance 4 Seat Position 5 Gym Equipment Cable Column (Body Solid) Hip Adduction Resistance 30# Hip Abduction Resistance 30# Shuttle Recovery Bilateral Squats Details Adductor Ball Squeeze Resistance 75# Shuttle Recovery Platform Stable Therapeutic Exercises Standing Exercises Hip Abduction Standing Exercise Name Hip Abduction Side bilateral Resistance Lv 1 Equipment Used T-band Comments prosthetic donned Hip Extension Standing Exercise Name Hip Extension Side bilateral Resistance Lv 1 Equipment Used T-band Comments prosthetic donned Single Limb Standing Standing Exercise Name balancing/stabalization Side right Reps/Minutes x 8 reps Comments pt unable to hold without UE support band walk Standing Exercise Name lateral, fwd/bkwd Equipment Used level 1 TB Reps/Minutes 20 ft x2 laps each direction Comments fwd/bkwd performed /c band around knees PT-OP-T Assessment and Plan Start: 10/14/19 13:59 Freq: Status: Active Protocol: Document 11/20/19 15:20 DCW (Rec: 11/20/19 16:06 DCW [id number]) Physical Therapy Assessment Impairments Impairments Activity Tolerance,Balance, Functional Activities,Gait, Strength Goals 4 Impairment impaired B LE strength Short Term Goal (STG) Pt will demonstrate 4+/5 strength in bilateral hips all planes. STG Duration 11/26/2019 Rivet Tosser Goal (LTG) Pt will demonstrate 5/5 strength in bilateral hips all planes. LTG Duration 01/07/2020 3 Impairment Pt scores 23/30 on Functional Gait Assessment Rivet Tosser Goal (LTG) Pt will score 27/30 or better to demonstrate improvement in dynamic balance and reduced risk of falls. LTG Duration 01/07/2020 2 Impairment Pt scores 59/80 on LEFS Short Term Goal (STG) Pt will score 66/80 or better to demonstrate improved function with daily activities . STG Duration 11/26/2019 Detention Goal (LTG) Pt will score 72/80 or better to demonstrate improved function with daily activities . LTG Duration 01/07/2020 1 Impairment Pt has no appropriate HEP Short Term Goal (STG) Pt will be independent with HEP for support of therapy services provided in clinic. STG Duration 11/12/2019 Detention Goal (LTG) Pt will be independent with maintenance HEP LTG Duration 01/07/2020 Assessment Summary Assessment Pt continues to make improvements with stability, activity tolerance, and gait quality. Pt doing well with HEP. Physical Therapy Plan Frequency and Duration Frequency of Treatment 2x/Week Duration of Treatment 12 weeks Plan of Care Start Date 10/15/19 Plan of Care End Date 01/07/20 Therapeutic Interventions Therapeutic Interventions Balance Training,Gait Training ,Home Exercise Program,Joint Mobilizations,Manual Therapy, Neuromuscular Re-education, Orthotic/Prosthetic Management ,Patient/Caregiver Education, Self-Care/Home Management,Soft Tissue Mobilization,Taping, Therapeutic Activities, Therapeutic Exercises Next Visit Focus/Plan Next Note Type Treatment Note Next Visit Plan progress standing exercises as tolerated, challenge gait with uneven surfaces.
--- NOTE | 2019-11-26 17:44 | PT.OTN ---
Current Diagnoses Muscle weakness (generalized) (11/26/19) Unspecified abnormalities of gait and mobility (11/26/19) Acquired absence of right leg above knee (11/26/19) Physical Therapy Treatment Note PT-OP-A Visit Information Start: 10/14/19 13:59 Freq: Status: Active Protocol: Document 11/26/19 12:47 AW (Rec: 11/26/19 17:44 AW [id number]) Out-Patient Physical Therapy Visit Information Visit Information Visit Type Treatment Note Visit Start Time 12:59 Visit Stop Time 13:44 Total Visit Minutes 45 Visit Number 11 Number of RURAL SERVICE ENGINEER Visits 0 Evaluation Information Evaluation Date 10/15/19 PT-OP-B Current Condition Start: 10/14/19 13:59 Freq: Status: Active Protocol: Document 10/15/19 12:00 AW (Rec: 10/16/19 17:39 AW [id number]) Current Condition History of Current Condition Onset Date 4 months Current Complaints right LE weakness, decreased activity tolerance History of Current Condition Efe is a of the [place] conflict who sustained R LE injury during service, rehabilitated for most of a year in an attempt to salvage the limb, and then 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 He has used the same prosthesis for many years with a rigid socket, but he began to experience ischial irritation and switched to a octoScope socketless socket under the care of Flory Linares at [facility] ~4 months ago . Since that time, he has enjoyed increased comfort with his prosthesis and is able to wear it longer during the day but notices that he becomes fatigued more easily. He seeks physical therapy for strengthening and gait training in order to maximize use of his prosthesis with new socket. Prior Treatments and Tests Under the care of ADELINA Godfrey at [facility]. Future Testing and Treatments Planned none identified Treatment Goals Patient/Caregiver Goals Efe would like to get more use out of his new prosthesis with new socket and be able to walk longer distances with less fatigue. Prior Functional Status Baseline Function- ADL's Independent Baseline Function- Mobility Independent Baseline Function- Gait independent with prosthesis Baseline Function- Work/School retired Baseline Function- Recreation/Hobbies Pt likes to spend time working in the yard Current Functional Impairments (Reported) Functional Limitations- Mobility/Gait Pt reports he is more fatigued with ambulation than he was with his previous socket Functional Limitations- Recreation/ Decreased confidence on uneven Hobbies surfaces PT-OP-C Subjective Start: 10/14/19 13:59 Freq: Status: Active Protocol: Document 11/26/19 12:47 AW (Rec: 11/26/19 17:44 AW [id number]) OP-PT Subjective Patient Comments Patient Comments Pt has been switching between two socket liners and finds it challenging to line them up perfectly. He reports having walked for a few blocks at [facility] with prosthesis/without crutches and that he tolerated it well. He states he is walking on days when not doing strengthening exercises. 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 PT-OP-G Mobility & Gait Start: 10/14/19 13:59 Freq: Status: Active Protocol: Document 10/15/19 12:00 AW (Rec: 10/16/19 17:39 AW [id number]) OP Mobility Evaluation Functional Movements Other Functional Movements Independent with all functional mobility OP Gait Assessment Gait Gait Assistance Required: Independent Distance (Feet) 200 Assistive Devices Orthotic/Prosthetic Devices or Brace: Yes Gait Deviations General Gait Pattern Lateral Trunk Lean,Wide Based Gait Factors Limiting Gait Function Factors Limiting Gait Function Decreased Activity Tolerance, Decreased Strength Comments Gait Comments Pt walks with increased hip flexion on the R LE to clear his foot. Contralateral hip drop during R LE stance. Mild circumduction and overuse of adductors during R LE swing phase. Right lateral trunk lean during R LE stance. Stair Climbing Evaluation Evaluation Level of Assist On Stairs Independent Devices Stair Climbing Assistive Devices Left Railing,Right Railing Technique/Endurance Stair Climbing Direction Ascend and Descend Stair Climbing Technique Step Over Step,Step to Step Number of Steps Climbed 4 Stair Climbing Set # Repetitions (reps) 3 Comments Stair Climbing Comments Pt ascended using B rails and step over step pattern. He is able to descend with B rails and step over step if he is careful to position his right forefoot off the step, but he tends to use a step-to pattern descending for increased confidence. PT-OP-K Range of Motion Start: 10/14/19 13:59 Freq: Status: Active Protocol: Document 10/15/19 12:00 AW (Rec: 10/16/19 17:39 AW [id number]) Hip Goniometric Range of Motion Hip ROM Limitations Comments B hip AROM WNL and normal end feels with PROM PT-OP-M Strength Start: 10/14/19 13:59 Freq: Status: Active Protocol: Document 10/15/19 12:00 AW (Rec: 10/16/19 17:39 AW [id number]) Hip Strength Hip Manual Muscle Testing Right Flexion (L2) 4 Good Extension (S1) 4- Good- Abduction 4- Good- Adduction 4 Good Left Flexion (L2) 4+ Good+ Extension (S1) 4- Good- Abduction 4- Good- Adduction 4 Good External Rotation 4 Good Internal Rotation 4 Good Knee Strength Knee Manual Muscle Testing Left Flexion (S2) 5 Normal Extension (L3) 5 Normal Ankle/Foot Strength Ankle and Foot Manual Muscle Testing Left Dorsiflexion (L4) 5 Normal Plantarflexion (S1) 5 Normal PT-OP-Q Treatments Start: 10/14/19 13:59 Freq: Status: Active Protocol: Document 11/26/19 12:47 AW (Rec: 11/26/19 17:44 AW [id number]) Cardio Equipment Recumbent Bicycle Duration (Minutes) 6 Resistance 6 Seat Position 5 Gym Equipment Shuttle Recovery Bilateral Squats Details Adductor Ball Squeeze Resistance 75#; 87.5 # Shuttle Recovery Platform Stable Reps/Time 75# 15 reps; 87.5# 10 reps x 2 Therapeutic Exercises Supine Exercises hip flexor march Supine Exercise Name hip flexor march Side right Resistance manual Equipment Used prosthesis donned Reps/Minutes 2x10 reps Comments limb off table; march into hooklying position Christiano stretch Supine Exercise Name off side of table Side right Equipment Used strap; with prosthesis Reps/Minutes 2 min Comments cued awareness not allow LS arch bridge Supine Exercise Name Bridging /c alternating marching Side bilateral Reps/Minutes 8 reps x 2 Comments prosthetic donned Sidelying Exercises clamshell Sidelying Exercise Name clamshell Side right Resistance Lv 3 Equipment Used T-band Reps/Minutes 15 reps sidelying hip abduction Sidelying Exercise Name sidelying hip abduction Side right Resistance level 3 TB Equipment Used prosthetic donned Reps/Minutes 15 reps Sitting Exercises Hip Abduction Sitting Exercise Name band around thighs Side bilateral Resistance L3 exercise band Reps/Minutes x 10 reps Comments cues for increased R hip excursion Standing Exercises Hip Abduction Standing Exercise Name Hip Abduction Side bilateral Resistance Lv 3 Equipment Used T-band Reps/Minutes 12 reps Comments prosthetic donned Hip Extension Standing Exercise Name Hip Extension Side bilateral Resistance Lv 3 Equipment Used T-band Comments prosthetic donned band walk Standing Exercise Name lateral Equipment Used level 3 TB Reps/Minutes 20 ft x2 laps each direction Comments fwd/bkwd performed /c band around knees PT-OP-T Assessment and Plan Start: 10/14/19 13:59 Freq: Status: Active Protocol: Document 11/26/19 12:47 AW (Rec: 11/26/19 17:44 AW [id number]) Physical Therapy Assessment Impairments Impairments Activity Tolerance,Balance, Functional Activities,Gait, Strength Goals 4 Impairment impaired B LE strength Short Term Goal (STG) Pt will demonstrate 4+/5 strength in bilateral hips all planes. STG Duration 11/26/2019 Credit Balance Specialist Goal (LTG) Pt will demonstrate 5/5 strength in bilateral hips all planes. LTG Duration 01/07/2020 3 Impairment Pt scores 23/30 on Functional Gait Assessment Fpc Goal (LTG) Pt will score 27/30 or better to demonstrate improvement in dynamic balance and reduced risk of falls. LTG Duration 01/07/2020 2 Impairment Pt scores 59/80 on LEFS Short Term Goal (STG) Pt will score 66/80 or better to demonstrate improved function with daily activities . STG Duration 11/26/2019 Credit Balance Specialist Goal (LTG) Pt will score 72/80 or better to demonstrate improved function with daily activities . LTG Duration 01/07/2020 1 Impairment Pt has no appropriate HEP Short Term Goal (STG) Pt will be independent with HEP for support of therapy services provided in clinic. 11/26/19 MET STG Duration 11/12/2019 Fpc Goal (LTG) Pt will be independent with maintenance HEP LTG Duration 01/07/2020 Assessment Summary Assessment Pt notices increased stability of new socket during ambulation without AD and feels he is getting stronger. Increased resistance for most exercises today to level 3 TB with pt able to maintain good form. Pt has 4 more visits approved through [place]. This PT asked the pt to request approval for more visits which he expressed interest in. Physical Therapy Plan Frequency and Duration Frequency of Treatment 2x/Week Duration of Treatment 12 weeks Plan of Care Start Date 10/15/19 Plan of Care End Date 01/07/20 Therapeutic Interventions Therapeutic Interventions Balance Training,Gait Training ,Home Exercise Program,Joint Mobilizations,Manual Therapy, Neuromuscular Re-education, Orthotic/Prosthetic Management ,Patient/Caregiver Education, Self-Care/Home Management,Soft Tissue Mobilization,Taping, Therapeutic Activities, Therapeutic Exercises Next Visit Focus/Plan Next Note Type Treatment Note Next Visit Plan Assess STG. Progress standing exercises as tolerated, challenge gait with uneven surfaces.
--- NOTE | 2019-11-28 12:52 | PT.OTN ---
Current Diagnoses Muscle weakness (generalized) (11/28/19) Unspecified abnormalities of gait and mobility (11/28/19) Acquired absence of right leg above knee (11/28/19) Physical Therapy Treatment Note PT-OP-A Visit Information Start: 10/14/19 13:59 Freq: Status: Active Protocol: Document 11/28/19 12:03 DCW (Rec: 11/28/19 12:52 DCW [id number]) Out-Patient Physical Therapy Visit Information Visit Information Visit Type Treatment Note Visit Start Time 12:03 Visit Stop Time 12:45 Total Visit Minutes 42 Visit Number 12 Number of SOFTWARE INTEGRATION DEVELOPER Visits 0 Evaluation Information Evaluation Date 10/15/19 PT-OP-B Current Condition Start: 10/14/19 13:59 Freq: Status: Active Protocol: Document 10/15/19 12:00 AW (Rec: 10/16/19 17:39 AW [id number]) Current Condition History of Current Condition Onset Date 4 months Current Complaints right LE weakness, decreased activity tolerance History of Current Condition Efe is a of the [place] conflict who sustained R LE injury during service, rehabilitated for most of a year in an attempt to salvage the limb, and then 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 He has used the same prosthesis for many years with a rigid socket, but he began to experience ischial irritation and switched to a CardioDx socketless socket under the care of Flory Linares at [facility] ~4 months ago . Since that time, he has enjoyed increased comfort with his prosthesis and is able to wear it longer during the day but notices that he becomes fatigued more easily. He seeks physical therapy for strengthening and gait training in order to maximize use of his prosthesis with new socket. Prior Treatments and Tests Under the care of ADELINA Godfrey at [facility]. Future Testing and Treatments Planned none identified Treatment Goals Patient/Caregiver Goals Efe would like to get more use out of his new prosthesis with new socket and be able to walk longer distances with less fatigue. Prior Functional Status Baseline Function- ADL's Independent Baseline Function- Mobility Independent Baseline Function- Gait independent with prosthesis Baseline Function- Work/School retired Baseline Function- Recreation/Hobbies Pt likes to spend time working in the yard Current Functional Impairments (Reported) Functional Limitations- Mobility/Gait Pt reports he is more fatigued with ambulation than he was with his previous socket Functional Limitations- Recreation/ Decreased confidence on uneven Hobbies surfaces PT-OP-C Subjective Start: 10/14/19 13:59 Freq: Status: Active Protocol: Document 11/28/19 12:03 DCW (Rec: 11/28/19 12:52 DCW [id number]) OP-PT Subjective Patient Comments Patient Comments Pt feels very good, reports he needs to speak with his Pigment Making Supervisor about reshaping his socket due to increased muscle mass in his residual limb. Patient Reported Progress Improving PT-OP-E Functional Tests Start: 10/14/19 13:59 Freq: Status: Active Protocol: Document 10/17/19 14:30 SP (Rec: 10/17/19 14:32 SP [id number]) Functional Tests 6 Minute Walk Test Distance 1038 Device Used prosthetic Comments hip flexor, adductor R tiring, noted slight circumduction, slower pace end PT-OP-F Manual Assessment Start: 10/14/19 13:59 Freq: Status: Active Protocol: Document 10/15/19 12:00 AW (Rec: 10/16/19 17:39 AW [id number]) Manual Assessments Other Manual Assessments Other Manual Assessments Global atrophy of right hip musculature relative to left. PT-OP-G Mobility & Gait Start: 10/14/19 13:59 Freq: Status: Active Protocol: Document 10/15/19 12:00 AW (Rec: 10/16/19 17:39 AW [id number]) OP Mobility Evaluation Functional Movements Other Functional Movements Independent with all functional mobility OP Gait Assessment Gait Gait Assistance Required: Independent Distance (Feet) 200 Assistive Devices Orthotic/Prosthetic Devices or Brace: Yes Gait Deviations General Gait Pattern Lateral Trunk Lean,Wide Based Gait Factors Limiting Gait Function Factors Limiting Gait Function Decreased Activity Tolerance, Decreased Strength Comments Gait Comments Pt walks with increased hip flexion on the R LE to clear his foot. Contralateral hip drop during R LE stance. Mild circumduction and overuse of adductors during R LE swing phase. Right lateral trunk lean during R LE stance. Stair Climbing Evaluation Evaluation Level of Assist On Stairs Independent Devices Stair Climbing Assistive Devices Left Railing,Right Railing Technique/Endurance Stair Climbing Direction Ascend and Descend Stair Climbing Technique Step Over Step,Step to Step Number of Steps Climbed 4 Stair Climbing Set # Repetitions (reps) 3 Comments Stair Climbing Comments Pt ascended using B rails and step over step pattern. He is able to descend with B rails and step over step if he is careful to position his right forefoot off the step, but he tends to use a step-to pattern descending for increased confidence. PT-OP-K Range of Motion Start: 10/14/19 13:59 Freq: Status: Active Protocol: Document 10/15/19 12:00 AW (Rec: 10/16/19 17:39 AW [id number]) Hip Goniometric Range of Motion Hip ROM Limitations Comments B hip AROM WNL and normal end feels with PROM PT-OP-M Strength Start: 10/14/19 13:59 Freq: Status: Active Protocol: Document 10/15/19 12:00 AW (Rec: 10/16/19 17:39 AW [id number]) Hip Strength Hip Manual Muscle Testing Right Flexion (L2) 4 Good Extension (S1) 4- Good- Abduction 4- Good- Adduction 4 Good Left Flexion (L2) 4+ Good+ Extension (S1) 4- Good- Abduction 4- Good- Adduction 4 Good External Rotation 4 Good Internal Rotation 4 Good Knee Strength Knee Manual Muscle Testing Left Flexion (S2) 5 Normal Extension (L3) 5 Normal Ankle/Foot Strength Ankle and Foot Manual Muscle Testing Left Dorsiflexion (L4) 5 Normal Plantarflexion (S1) 5 Normal PT-OP-Q Treatments Start: 10/14/19 13:59 Freq: Status: Active Protocol: Document 11/28/19 12:03 DCW (Rec: 11/28/19 12:52 DCW [id number]) Cardio Equipment Recumbent Bicycle Duration (Minutes) 7 Resistance 6 Seat Position 5 Gym Equipment Cable Column (Body Solid) Hip Adduction Resistance 30# Hip Abduction Resistance 30# Shuttle Recovery Bilateral Squats Details Adductor Ball Squeeze Resistance 87# Shuttle Recovery Platform Stable Therapeutic Exercises Supine Exercises bridge Supine Exercise Name Bridging /c alternating marching Side bilateral Reps/Minutes 8 reps x 2 Comments prosthetic donned Sidelying Exercises clamshell Sidelying Exercise Name clamshell Side right Resistance Lv 3 Equipment Used T-band Reps/Minutes 15 reps Standing Exercises Hip Extension Standing Exercise Name Hip Extension Side bilateral Resistance Lv 3 Equipment Used T-band Comments prosthetic donned band walk Standing Exercise Name lateral, fwd/bkwd Equipment Used level 3 TB Reps/Minutes 20 ft x2 laps each direction Comments fwd/bkwd performed /c band around knees PT-OP-T Assessment and Plan Start: 10/14/19 13:59 Freq: Status: Active Protocol: Document 11/28/19 12:03 DCW (Rec: 11/28/19 12:52 DCW [id number]) Physical Therapy Assessment Impairments Impairments Activity Tolerance,Balance, Functional Activities,Gait, Strength Goals 4 Impairment impaired B LE strength Short Term Goal (STG) Pt will demonstrate 4+/5 strength in bilateral hips all planes. STG Duration 11/26/2019 Alf Goal (LTG) Pt will demonstrate 5/5 strength in bilateral hips all planes. LTG Duration 01/07/2020 3 Impairment Pt scores 23/30 on Functional Gait Assessment Alf Goal (LTG) Pt will score 27/30 or better to demonstrate improvement in dynamic balance and reduced risk of falls. LTG Duration 01/07/2020 2 Impairment Pt scores 59/80 on LEFS Short Term Goal (STG) Pt will score 66/80 or better to demonstrate improved function with daily activities . STG Duration 11/26/2019 Alf Goal (LTG) Pt will score 72/80 or better to demonstrate improved function with daily activities . LTG Duration 01/07/2020 1 Impairment Pt has no appropriate HEP Short Term Goal (STG) Pt will be independent with HEP for support of therapy services provided in clinic. 11/26/19 MET STG Duration 11/12/2019 Elementary Education Tutor Goal (LTG) Pt will be independent with maintenance HEP LTG Duration 01/07/2020 Assessment Summary Assessment Pt feels like he has a good enough grasp on necessary functional exercises and activities that he will continue to do well independent from skilled therapeutic intervention. Pt will likely discharge following his final two scheduled visits. Physical Therapy Plan Frequency and Duration Frequency of Treatment 2x/Week Duration of Treatment 12 weeks Plan of Care Start Date 10/15/19 Plan of Care End Date 01/07/20 Therapeutic Interventions Therapeutic Interventions Balance Training,Gait Training ,Home Exercise Program,Joint Mobilizations,Manual Therapy, Neuromuscular Re-education, Orthotic/Prosthetic Management ,Patient/Caregiver Education, Self-Care/Home Management,Soft Tissue Mobilization,Taping, Therapeutic Activities, Therapeutic Exercises Next Visit Focus/Plan Next Note Type Treatment Note Next Visit Plan Progress standing exercises as tolerated, challenge gait with uneven surfaces.
--- NOTE | 2019-12-03 16:30 | PT.OTN ---
Current Diagnoses Muscle weakness (generalized) (12/03/19) Unspecified abnormalities of gait and mobility (12/03/19) Acquired absence of right leg above knee (12/03/19) Physical Therapy Treatment Note PT-OP-A Visit Information Start: 10/14/19 13:59 Freq: Status: Active Protocol: Document 12/03/19 13:03 AW (Rec: 12/03/19 16:30 AW [id number]) Out-Patient Physical Therapy Visit Information Visit Information Visit Type Treatment Note Visit Start Time 13:03 Visit Stop Time 13:45 Total Visit Minutes 42 Visit Number Number of HORSE RIDING COACH OR INSTRUCTOR Visits 0 Evaluation Information Evaluation Date 10/15/19 PT-OP-B Current Condition Start: 10/14/19 13:59 Freq: Status: Active Protocol: Document 10/15/19 12:00 AW (Rec: 10/16/19 17:39 AW [id number]) Current Condition History of Current Condition Onset Date 4 months Current Complaints right LE weakness, decreased activity tolerance History of Current Condition Efe is a of the [place] conflict who sustained R LE injury during service, rehabilitated for most of a year in an attempt to salvage the limb, and then 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 He has used the same prosthesis for many years with a rigid socket, but he began to experience ischial irritation and switched to a Moasis socketless socket under the care of Flory Linares at [facility] ~4 months ago . Since that time, he has enjoyed increased comfort with his prosthesis and is able to wear it longer during the day but notices that he becomes fatigued more easily. He seeks physical therapy for strengthening and gait training in order to maximize use of his prosthesis with new socket. Prior Treatments and Tests Under the care of ADELINA Godfrey at [facility]. Future Testing and Treatments Planned none identified Treatment Goals Patient/Caregiver Goals Efe would like to get more use out of his new prosthesis with new socket and be able to walk longer distances with less fatigue. Prior Functional Status Baseline Function- ADL's Independent Baseline Function- Mobility Independent Baseline Function- Gait independent with prosthesis Baseline Function- Work/School retired Baseline Function- Recreation/Hobbies Pt likes to spend time working in the yard Current Functional Impairments (Reported) Functional Limitations- Mobility/Gait Pt reports he is more fatigued with ambulation than he was with his previous socket Functional Limitations- Recreation/ Decreased confidence on uneven Hobbies surfaces PT-OP-C Subjective Start: 10/14/19 13:59 Freq: Status: Active Protocol: Document 12/03/19 13:03 AW (Rec: 12/03/19 16:30 AW [id number]) OP-PT Subjective Patient Comments Patient Comments Pt was sore on Sunday after Sunday treatment. Feeling less wobbly during ambulation, more conscious of gait pattern . He is planning for Sunday to be his last visit in this plan of care. 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 PT-OP-G Mobility & Gait Start: 10/14/19 13:59 Freq: Status: Active Protocol: Document 10/15/19 12:00 AW (Rec: 10/16/19 17:39 AW [id number]) OP Mobility Evaluation Functional Movements Other Functional Movements Independent with all functional mobility OP Gait Assessment Gait Gait Assistance Required: Independent Distance (Feet) 200 Assistive Devices Orthotic/Prosthetic Devices or Brace: Yes Gait Deviations General Gait Pattern Lateral Trunk Lean,Wide Based Gait Factors Limiting Gait Function Factors Limiting Gait Function Decreased Activity Tolerance, Decreased Strength Comments Gait Comments Pt walks with increased hip flexion on the R LE to clear his foot. Contralateral hip drop during R LE stance. Mild circumduction and overuse of adductors during R LE swing phase. Right lateral trunk lean during R LE stance. Stair Climbing Evaluation Evaluation Level of Assist On Stairs Independent Devices Stair Climbing Assistive Devices Left Railing,Right Railing Technique/Endurance Stair Climbing Direction Ascend and Descend Stair Climbing Technique Step Over Step,Step to Step Number of Steps Climbed 4 Stair Climbing Set # Repetitions (reps) 3 Comments Stair Climbing Comments Pt ascended using B rails and step over step pattern. He is able to descend with B rails and step over step if he is careful to position his right forefoot off the step, but he tends to use a step-to pattern descending for increased confidence. PT-OP-K Range of Motion Start: 10/14/19 13:59 Freq: Status: Active Protocol: Document 10/15/19 12:00 AW (Rec: 10/16/19 17:39 AW [id number]) Hip Goniometric Range of Motion Hip ROM Limitations Comments B hip AROM WNL and normal end feels with PROM PT-OP-M Strength Start: 10/14/19 13:59 Freq: Status: Active Protocol: Document 10/15/19 12:00 AW (Rec: 10/16/19 17:39 AW [id number]) Hip Strength Hip Manual Muscle Testing Right Flexion (L2) 4 Good Extension (S1) 4- Good- Abduction 4- Good- Adduction 4 Good Left Flexion (L2) 4+ Good+ Extension (S1) 4- Good- Abduction 4- Good- Adduction 4 Good External Rotation 4 Good Internal Rotation 4 Good Knee Strength Knee Manual Muscle Testing Left Flexion (S2) 5 Normal Extension (L3) 5 Normal Ankle/Foot Strength Ankle and Foot Manual Muscle Testing Left Dorsiflexion (L4) 5 Normal Plantarflexion (S1) 5 Normal PT-OP-Q Treatments Start: 10/14/19 13:59 Freq: Status: Active Protocol: Document 12/03/19 13:03 AW (Rec: 12/03/19 16:30 AW [id number]) Cardio Equipment Recumbent Bicycle Duration (Minutes) 7 Resistance 6 Seat Position 5 Gym Equipment Cable Column (Body Solid) Hip Adduction Resistance 30# Reps/Time 15 reps x 2 Hip Abduction Resistance 30# Reps/Time 15 reps x 2 Therapeutic Exercises Standing Exercises band walk Standing Exercise Name lateral, fwd/bkwd Resistance on overlapping mats with additional foam placed randomly for uneven surface Equipment Used level 3 TB Reps/Minutes 10 ft x4 laps each direction Comments without and with TB Gait Training Gait Activity level surface Description level surface Device Used none Level of Assistance SBA Surface tile, carpet Distance/Duration 500 feet Treatment Focus forward translation of RLED Comments cues to avoid circumduction; improved since last trial PT-OP-T Assessment and Plan Start: 10/14/19 13:59 Freq: Status: Active Protocol: Document 12/03/19 13:03 AW (Rec: 12/03/19 16:30 AW [id number]) Physical Therapy Assessment Impairments Impairments Activity Tolerance,Balance, Functional Activities,Gait, Strength Goals 4 Impairment impaired B LE strength Short Term Goal (STG) Pt will demonstrate 4+/5 strength in bilateral hips all planes. STG Duration 11/26/2019 Residential Goal (LTG) Pt will demonstrate 5/5 strength in bilateral hips all planes. LTG Duration 01/07/2020 3 Impairment Pt scores 23/30 on Functional Gait Assessment Dust Puller Goal (LTG) Pt will score 27/30 or better to demonstrate improvement in dynamic balance and reduced risk of falls. LTG Duration 01/07/2020 2 Impairment Pt scores 59/80 on LEFS Short Term Goal (STG) Pt will score 66/80 or better to demonstrate improved function with daily activities . STG Duration 11/26/2019 Dust Puller Goal (LTG) Pt will score 72/80 or better to demonstrate improved function with daily activities . LTG Duration 01/07/2020 1 Impairment Pt has no appropriate HEP Short Term Goal (STG) Pt will be independent with HEP for support of therapy services provided in clinic. 11/26/19 MET STG Duration 11/12/2019 Residential Goal (LTG) Pt will be independent with maintenance HEP LTG Duration 01/07/2020 Assessment Summary Assessment Pt has made good progress and finds he is able to wear his new socket longer and use it more efficiently. He is requesting discharge from current plan of care after last scheduled visit on Sunday . He has a meeting scheduled with [place] and his top tile decorator scheduled in February at which time he will decide whether or not to seek another PT referral. Physical Therapy Plan Frequency and Duration Frequency of Treatment 2x/Week Duration of Treatment 12 weeks Plan of Care Start Date 10/15/19 Plan of Care End Date 01/07/20 Therapeutic Interventions Therapeutic Interventions Balance Training,Gait Training ,Home Exercise Program,Joint Mobilizations,Manual Therapy, Neuromuscular Re-education, Orthotic/Prosthetic Management ,Patient/Caregiver Education, Self-Care/Home Management,Soft Tissue Mobilization,Taping, Therapeutic Activities, Therapeutic Exercises Next Visit Focus/Plan Next Note Type Discharge Summary Next Visit Plan Continue challenge on uneven surfaces
--- NOTE | 2019-12-05 17:03 | PT.OTN ---
Current Diagnoses Muscle weakness (generalized) (12/05/19) Unspecified abnormalities of gait and mobility (12/05/19) Acquired absence of right leg above knee (12/05/19) Physical Therapy Treatment Note PT-OP-A Visit Information Start: 10/14/19 13:59 Freq: Status: Active Protocol: Document 12/05/19 13:45 DCW (Rec: 12/05/19 17:03 DCW [id number]) Out-Patient Physical Therapy Visit Information Visit Information Visit Type Discharge Summary Visit Start Time 13:45 Visit Stop Time 14:30 Total Visit Minutes 45 Visit Number 14/15 Number of GOLD BURNISHER Visits 0 Evaluation Information Evaluation Date 10/15/19 PT-OP-B Current Condition Start: 10/14/19 13:59 Freq: Status: Active Protocol: Document 10/15/19 12:00 AW (Rec: 10/16/19 17:39 AW [id number]) Current Condition History of Current Condition Onset Date 4 months Current Complaints right LE weakness, decreased activity tolerance History of Current Condition Efe is a of the [place] conflict who sustained R LE injury during service, rehabilitated for most of a year in an attempt to salvage the limb, and then 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 He has used the same prosthesis for many years with a rigid socket, but he began to experience ischial irritation and switched to a [employer] socketless socket under the care of Flory Linares at [facility] ~4 months ago . Since that time, he has enjoyed increased comfort with his prosthesis and is able to wear it longer during the day but notices that he becomes fatigued more easily. He seeks physical therapy for strengthening and gait training in order to maximize use of his prosthesis with new socket. Prior Treatments and Tests Under the care of ADELINA Godfrey at [facility]. Future Testing and Treatments Planned none identified Treatment Goals Patient/Caregiver Goals Efe would like to get more use out of his new prosthesis with new socket and be able to walk longer distances with less fatigue. Prior Functional Status Baseline Function- ADL's Independent Baseline Function- Mobility Independent Baseline Function- Gait independent with prosthesis Baseline Function- Work/School retired Baseline Function- Recreation/Hobbies Pt likes to spend time working in the yard Current Functional Impairments (Reported) Functional Limitations- Mobility/Gait Pt reports he is more fatigued with ambulation than he was with his previous socket Functional Limitations- Recreation/ Decreased confidence on uneven Hobbies surfaces PT-OP-C Subjective Start: 10/14/19 13:59 Freq: Status: Active Protocol: Document 12/05/19 13:45 DCW (Rec: 12/05/19 17:03 DCW [id number]) OP-PT Subjective Patient Comments Patient Comments Pt feeling much more comfortable and stable with ambulation than he was at his initial evaluation. Feels like his hip stability, especially his abductors and adductors for his medial/lateral stability. Pt feels comfortable at this time with discharge, and will continue HEP independently. PT-OP-E Functional Tests Start: 10/14/19 13:59 Freq: Status: Active Protocol: Document 12/05/19 13:45 DCW (Rec: 12/05/19 14:14 DCW [id number]) Functional Tests 6 Minute Walk Test Distance 1070 Device Used prosthetic Comments mild fatigue last 2 minutes with decreased pace Functional Gait Assessment Score 22/30 PT-OP-F Manual Assessment Start: 10/14/19 13:59 Freq: Status: Active Protocol: Document 12/05/19 13:45 DCW (Rec: 12/05/19 14:14 DCW [id number]) Manual Assessments Other Manual Assessments Other Manual Assessments Improved muscle tone in right hip/residual limb PT-OP-G Mobility & Gait Start: 10/14/19 13:59 Freq: Status: Active Protocol: Document 12/05/19 13:45 DCW (Rec: 12/05/19 14:14 DCW [id number]) OP Gait Assessment Gait Gait Assistance Required: Independent Gait Deviations General Gait Pattern Lateral Trunk Lean,Wide Based Gait Stair Climbing Evaluation Evaluation Level of Assist On Stairs Independent Devices Stair Climbing Assistive Devices Left Railing,Right Railing Technique/Endurance Stair Climbing Direction Ascend and Descend Stair Climbing Technique Step Over Step,Step to Step Number of Steps Climbed 4 Comments Stair Climbing Comments Pt ascended using B rails and step to step pattern. He is able to descend with B rails and step over step. PT-OP-K Range of Motion Start: 10/14/19 13:59 Freq: Status: Active Protocol: Document 10/15/19 12:00 AW (Rec: 10/16/19 17:39 AW [id number]) Hip Goniometric Range of Motion Hip ROM Limitations Comments B hip AROM WNL and normal end feels with PROM PT-OP-M Strength Start: 10/14/19 13:59 Freq: Status: Active Protocol: Document 12/05/19 13:45 DCW (Rec: 12/05/19 14:14 DCW [id number]) Hip Strength Hip Manual Muscle Testing Right Flexion (L2) 5 Normal Extension (S1) 5 Normal Abduction 4+ Good+ Adduction 4+ Good+ Left Flexion (L2) 5 Normal Extension (S1) 5 Normal Abduction 5 Normal Adduction 5 Normal External Rotation 5 Normal Internal Rotation 5 Normal PT-OP-Q Treatments Start: 10/14/19 13:59 Freq: Status: Active Protocol: Document 12/05/19 13:45 DCW (Rec: 12/05/19 17:03 DCW [id number]) Gym Equipment Cable Column (Body Solid) Hip Adduction Resistance 30# Reps/Time 15 reps x 2 Hip Abduction Resistance 30# Reps/Time 15 reps x 2 Shuttle Recovery Bilateral Squats Details Adductor Ball Squeeze Resistance 87# Shuttle Recovery Platform Stable PT-OP-T Assessment and Plan Start: 10/14/19 13:59 Freq: Status: Active Protocol: Document 12/05/19 13:45 DCW (Rec: 12/05/19 17:03 DCW [id number]) Physical Therapy Assessment Impairments Impairments Activity Tolerance,Balance, Functional Activities,Gait, Strength Goals 4 Impairment impaired B LE strength Short Term Goal (STG) Pt will demonstrate 4+/5 strength in bilateral hips all planes. STG Duration Met Alf Goal (LTG) Pt will demonstrate 5/5 strength in bilateral hips all planes. LTG Duration 01/07/2020 - Improving, 4+/5 with R abd/add 3 Impairment Pt scores 23/30 on Functional Gait Assessment Epic Professional Goal (LTG) Pt will score 27/30 or better to demonstrate improvement in dynamic balance and reduced risk of falls. LTG Duration 01/07/2020 - no change 2 Impairment Pt scores 59/80 on LEFS Short Term Goal (STG) Pt will score 66/80 or better to demonstrate improved function with daily activities . STG Duration 11/26/2019 Alf Goal (LTG) Pt will score 72/80 or better to demonstrate improved function with daily activities . LTG Duration 01/07/2020 1 Impairment Pt has no appropriate HEP Short Term Goal (STG) Pt will be independent with HEP for support of therapy services provided in clinic. 11/26/19 MET STG Duration 11/12/2019 Alf Goal (LTG) Pt will be independent with maintenance HEP LTG Duration Met Progress Towards Goals Progress Towards Goals Progressing Toward Goals Assessment Summary Assessment Pt has made great improvement with his hip strength and stability. Pt feels comfortable with his current level of function, feels like he has reached his personal goals for PT, and is agreeable for discharge at this time. Physical Therapy Plan Frequency and Duration Frequency of Treatment 2x/Week Duration of Treatment 12 weeks Plan of Care Start Date 10/15/19 Plan of Care End Date 01/07/20 Therapeutic Interventions Therapeutic Interventions Balance Training,Gait Training ,Home Exercise Program,Joint Mobilizations,Manual Therapy, Neuromuscular Re-education, Orthotic/Prosthetic Management ,Patient/Caregiver Education, Self-Care/Home Management,Soft Tissue Mobilization,Taping, Therapeutic Activities, Therapeutic Exercises Discharge Physical Therapy Discharge Reasons Goals Met Next Visit Focus/Plan Next Note Type Discharge Summary Next Visit Plan Continue challenge on uneven surfaces
== END 2019-12-09 13:14 ==
LOC: PHYS 13:45
PROVIDERS: PCP Family Medicine
DX: Z89.611 Acquired absence of right leg above knee (principal); M62.81 Muscle weakness (generalized); R26.9 Unspecified abnormalities of gait and mobility
CPT/HCPCS: 97110; 97112; 97116; 97161

== ENCOUNTER → 2020-11-05 16:04 | Outpatient (CLI) | payer MEDICARE, OTHER, SELFPAY ==
[2020-11-05] MEDS: COVID-19 VACC #1, MRNA(MOD) 100 MCG/0.5 ML VIAL IM (16:45)
== END ==
PROVIDERS: PCP Family Medicine; Visit Provider Internal Medicine
DX: Z23 Encounter for immunization (principal)
CPT/HCPCS: 0011A; 91301

== ENCOUNTER → 2020-12-03 15:48 | Outpatient (CLI) | payer MEDICARE, OTHER, SELFPAY ==
[2020-12-03] MEDS: COVID-19 VACC #2, MRNA(MOD) 100 MCG/0.5 ML VIAL IM (15:51)
== END ==
PROVIDERS: Visit Provider Internal Medicine
DX: Z23 Encounter for immunization (principal)
CPT/HCPCS: 0012A; 91301

== ENCOUNTER → 2021-08-19 10:21 | Outpatient (CLI) | payer MEDICARE, OTHER, SELFPAY ==
[2021-08-19] MEDS: COVID-19 VACC #3, MRNA(MOD) 50 MCG/0.25 ML VIAL IM (10:25)
== END ==
PROVIDERS: Visit Provider Internal Medicine
DX: Z23 Encounter for immunization (principal)
CPT/HCPCS: 0013A; 91301

== ENCOUNTER → 2023-07-09 16:25 | Outpatient (CLI) | payer MEDICARE, OTHER, SELFPAY ==
--- NOTE | 2023-07-09 | DI.RAD.S_ITS ---
PROCEDURE: XR CHEST 2V INDICATIONS: Cough TECHNIQUE: 2 views of the chest were acquired. COMPARISON: None. FINDINGS: Surgical changes and devices: None. Lungs and pleura: There is hyperinflation. No focal infiltrate. No pleural effusions or pneumothorax. Mediastinum: Mediastinal contours are normal. Heart size is normal. Bones and chest wall: No suspicious bony abnormalities. Soft tissues appear unremarkable. IMPRESSION: Hyperinflation. No focal infiltrate, pleural effusion or pneumothorax. Dictated by: Bal Rae M.D. on 07/09/2023 at 17:26 Approved by: Bal Rae M.D. on 07/09/2023 at 17:27
== END ==
PROVIDERS: Referring Provider Family Medicine; Visit Provider Family Medicine
DX: R05.1 Acute cough (principal)
CPT/HCPCS: 71046

== ENCOUNTER → 2025-03-13 10:48 | Outpatient (CLI) | payer MEDICARE, OTHER, SELFPAY ==
--- NOTE | 2025-03-13 10:51 | DI.RAD.S_ITS ---
PROCEDURE: ORTHO-XR ANKLE 3V WB LEFT INDICATIONS: Pain in left ankle and joints of left foot TECHNIQUE: Three views of the left ankle were acquired. COMPARISON: None. FINDINGS: Suspected pes planus. Prominent posterior calcaneal enthesophyte is seen with lucency at the base, likely chronic although recent enthesophyte fracture is not excluded. Small plantar calcaneal enthesophyte. Small lucency at the lateral talar dome may represent a chronic osteochondral lesion. No suspicious soft tissue calcifications. Achilles tendon stripe appears normal. IMPRESSION: 1. Focal lucency at the lateral talar dome is suspicious for a small chronic osteochondral lesion. 2. Prominent posterior calcaneal enthesophyte with linear lucency at the base that is likely chronic although acute enthesophyte fracture is not excluded if there has been recent trauma or associated symptoms. Small plantar calcaneal enthesophyte. 3. Suspected pes planus. Consider weight-bearing radiographs for further evaluation. Approved by: Tevin Martinez M.D. on 03/13/2025 at 12:40
== END ==
LOC: RAD 10:50
PROVIDERS: PCP Family Medicine; Referring Provider Family Medicine; Visit Provider Family Medicine
DX: M77.32 Calcaneal spur, left foot (principal); M25.572 Pain in left ankle and joints of left foot; G89.29 Other chronic pain
CPT/HCPCS: 73610

== ENCOUNTER → 2025-05-03 15:42 | Outpatient (CLI) | payer MEDICARE, OTHER, SELFPAY ==
--- NOTE | 2025-05-03 15:43 | DI.MRI.S_ITS ---
PROCEDURE: MR ANKLE LT WO CON INDICATIONS: left ankle pain TECHNIQUE: Noncontrast sagittal T1 spin echo and T2 fast spin echo with fat saturation, axial proton density fast spin echo and T2 fast spin echo with fat saturation, coronal T1 spin echo and T2 fast spin echo with fat saturation through the ankle/hindfoot. COMPARISON: [facility], CR, ORTHO-XR ANKLE 3V WB LEFT, 03/13/2025, 10:54. FINDINGS: Image quality: Excellent. Bones and joints: No acute trabecular bone injury or fracture. No hindfoot coalitions. Osteochondral lesion at the lateral talar dome measuring approximately the 12 x 6 x 11 mm with cartilage loss and subchondral edema. There is irregularity of flattening of the subchondral plate with focal fluid signal that could indicate an unstable fragment (see coronal series 7, image 26). Mild sagging of the midfoot is suspicious for pes planus. Mild degenerative changes at the dorsal talonavicular joint. Very mild edema at the lateral cuneiform and cuboid articulation is likely degenerative. Yaritza deformity is seen at the posterior calcaneus as well as small chronic appearing cystic changes likely related to Achilles tendon traction. Nonedematous posterior and plantar calcaneal enthesophytes. Nonspecific soft tissue edema surrounding ankle and at the dorsum of the foot. Medial structures: There is thickening of the distal tibiospring ligament and the superomedial band of the spring ligament that may be related to prior low-grade sprains. Mild posterior tibialis tendinosis. The flexor digitorum longus and flexor hallucis longus tendons are intact. The posterior tibial neurovascular bundle appears normal within the tarsal tunnel, without extrinsic mass effect. Lateral structures: Remote prior low-grade sprains of the anterior talofibular ligament and calcaneofibular ligament. The posterior talofibular ligament is intact. The anterior and posterior tibiofibular ligaments are intact. The peroneus longus and brevis tendons demonstrate normal location and morphology. An accessory peroneus quartus muscle is present, an anatomic variant. The sinus tarsi demonstrates normal fatty signal. Anterior structures: The tibialis anterior, extensor hallucis longus, and extensor digitorum longus tendons appear intact. Posterior and plantar structures: Moderate Achilles tendinosis. The proximal plantar fascia is mildly thickened without acute tearing seen. No abductor digiti minimi muscle atrophy to suggest Andrew neuropathy. IMPRESSION: 1. Osteochondral lesion at the lateral talar dome with flattening of the subchondral plate and trace undercutting fluid signal that could indicate an unstable osteochondral fragment. 2. Sagging of the midfoot is suspicious for pes planus. Mild degenerative changes at the talonavicular joint and lateral cuneiform-cuboid articulation. 3. Remote prior low-grade sprains of the tibiospring ligament and superior medial band of the spring ligament. 4. Mild posterior tibialis tendinosis without tearing. 5. Remote prior low-grade sprains of the anterior talofibular ligament and calcaneofibular ligament. 6. Moderate Achilles tendinosis. Chronic cystic changes and Yaritza deformity are noted at the adjacent posterior calcaneus. A nonedematous enthesophyte is seen at the Achilles insertion. 7. Mild chronic proximal plantar fasciitis. Approved by: Tevin Martinez M.D. on 05/04/2025 at 13:54
== END ==
PROVIDERS: PCP Family Medicine; Referring Provider Family Medicine Sports Medicine; Visit Provider Family Medicine Sports Medicine
DX: S93.492A Sprain of other ligament of left ankle, initial encounter (principal); S93.412A Sprain of calcaneofibular ligament of left ankle, initial encounter; M72.2 Plantar fascial fibromatosis; M92.62 Juvenile osteochondrosis of tarsus, left ankle; M25.572 Pain in left ankle and joints of left foot; M24.9 Joint derangement, unspecified
CPT/HCPCS: 73721